=== PATIENT | female | born 2000 | race African-American/Black ===

== ENCOUNTER 2022-07-11 00:41 | Emergency (ER) | payer MEDICAID ==
[~2022-07-11] VITALS: Ht 160 cm; Wt 63.7 kg
[~2022-07-11 00:41] MED LIST: ALBU17AE23
[2022-07-11 00:50] VITALS: BP 110/62
--- NOTE | 2022-07-11 01:09 | ED Abdominal Pain ---
General Stated Complaint: VOMITING 8 WKS PREG Source of Information: Patient Exam Limitations: No Limitations History of Present Illness Date Seen by Provider: Jul 11, 2022 Time Seen by Provider: 01:08 Initial Comments Patient is a 22-year-old female who presents to the emergency department today with a chief complaint of generalized malaise, weakness dizziness with standing, nausea and vomiting all day while working. She is approximately 6 weeks , G1, P0 no care yet. Did not take anything other than a vitamin today. Attempted to eat some noodles at dinner but vomited them back up she denies abdominal pain but has lower abdominal "fullness". Denies dysuria, urgency frequency. No abnormal vaginal discharge or spotting. No fevers or chills. No cough, URI symptoms. States that she feels very dehydrated. Only prior surgeries ACL repair. Anticipates care through [facility]. Timing/Duration: 12-24 Hours Severity/Quality: Severe Activities at Onset: Activity Modifying Factors: Improves With Lying down Associated Symptoms: Nausea/Vomiting, Weakness Allergies and Home Medications Allergies Coded Allergies: No Known Drug Allergies (Unverified Allergy, Mild, 01/09/09) Patient Home Medication List Home Medication List Reviewed: Yes Albuterol (Ventolin) 17 Gm Aerosol, (Reported) Entered as Reported by: ADAL ORONA on 01/09/092208 Review of Systems Review of Systems Constitutional: see HPI EENTM: No Symptoms Reported Respiratory: No Symptoms Reported Cardiovascular: No Symptoms Reported Gastrointestinal: Constipated, Nausea, Vomiting Genitourinary: No Symptoms Reported Musculoskeletal: no symptoms reported Skin: no symptoms reported Psychiatric/Neurological: Weakness, Other (dizziness) All Other Systems Reviewed Negative Unless Noted: Yes Physical Exam Vital Signs Vital Signs - First Documented 07/11/22 00:50 Temp 36.6 Pulse 82 Resp 20 B/P (MAP) 110/62 (78) Capillary Refill : Height/Weight/BMI Height: '" Weight: lbs. oz. kg; BMI Method: General Appearance: WD/WN, no apparent distress HEENT: PERRL/EOMI, other (dry mucous membranes) Neck: supple, normal inspection Respiratory: lungs clear, normal breath sounds, no respiratory distress, no accessory muscle use Cardiovascular: regular rate, rhythm Gastrointestinal: normal bowel sounds (slightly hyperactive), soft, tenderness (mild jarret-umbilical tenderness) Extremities: normal range of motion, normal inspection, no pedal edema Neurologic/Psychiatric: no motor/sensory deficits, alert, normal mood/affect, oriented x 3 Skin: normal color, warm/dry Progress/Results/Core Measures Results/Orders Lab Results Laboratory Tests Test 07/11/22 01:25 07/11/22 01:45 Range/Units Sodium Level 135 135-145 MMOL/L Potassium Level 3.2 L 3.6-5.0 MMOL/L Chloride Level 103 98-107 MMOL/L Carbon Dioxide Level 22 21-32 MMOL/L Anion Gap 10 5-14 MMOL/L Blood Urea Nitrogen 9 7-18 MG/DL Creatinine 0.74 0.60-1.30 MG/DL Estimat Glomerular Filtration Rate 117 BUN/Creatinine Ratio 12 Glucose Level 105 70-105 MG/DL Calcium Level 9.7 8.5-10.1 MG/DL Urine Color YELLOW Urine Clarity CLEAR Urine pH 7.0 5-9 Urine Specific Haven 1.025 H 1.016-1.022 Urine Protein NEGATIVE NEGATIVE Urine Glucose (UA) NEGATIVE NEGATIVE Urine Ketones 1+ H NEGATIVE Urine Nitrite NEGATIVE NEGATIVE Urine Bilirubin NEGATIVE NEGATIVE Urine Urobilinogen 0.2 < = 1.0 MG/DL Urine Leukocyte Esterase NEGATIVE NEGATIVE Urine RBC (Auto) NEGATIVE NEGATIVE Urine RBC NONE /HPF Urine WBC NONE /HPF Urine Squamous Epithelial Cells 0-2 /HPF Urine Crystals NONE /LPF Urine Bacteria TRACE /HPF Urine Casts NONE /LPF Urine Mucus LARGE H /LPF Urine Culture Indicated NO My Orders Orders - ONUR CHACKO MD Ed Iv/Invasive Line Start (07/11/22 01:15) Basic Metabolic Panel (07/11/22 01:15) Ua Culture If Indicated (07/11/22 01:15) Lactated Ringers (Lr 1000 Ml Iv Solution (07/11/22 01:15) Ondansetron Injection (Zofran Injectio (07/11/22 01:15) Medications Given in ED Current Medications Medications Dose Ordered Sig/Christel Route Start Time Stop Time Status Last Admin Dose Admin Ondansetron HCl 8 mg ONCE ONCE IVP 07/11/22 01:15 07/11/22 01:16 DC 07/11/22 01:26 8 MG Vital Signs/I&O 07/11/22 00:50 Temp 36.6 Pulse 82 Resp 20 B/P (MAP) 110/62 (78) Progress Progress Note : Time: 02:32 Progress Note Patient seen and evaluated by me, 22-year-old G1, P0 presents to the emergency room with 24 hours of nausea and vomiting. Differential diagnosis based on history and physical includes hyperemesis gravidarum, urinary tract infection, viral syndrome, gastroenteritis, appendicitis, cholecystitis. Evaluation today includes physical exam, urinalysis, basic metabolic panel. Patient is treated with IV fluids and Zofran. Patient is afebrile, no persistent vomiting. Abdominal exam is benign. UA does not reveal any infection. Basic metabolic panel shows mild hypokalemia. Once fluids and Zofran have been completed patient is hungry and requesting crackers and something to drink. She states she feels much better. Reexamined, remains with benign exam. Low clinical suspicion for any acute intra-abdominal process. Patient will be sent home with Zofran and return precautions. She verbalized understanding. All questions are sought and answered. Patient is stable for discharge. Departure Impression Primary Impression: Vomiting affecting , antepartum Disposition: 01 HOME, SELF-CARE Condition: Improved Departure-Patient Inst. Decision time for Depature: 02:35 Referrals: [facility] (PCP/Family) Primary Care Physician Patient Instructions: Morning Sickness ED Add. Discharge Instructions: Take the ondansetron/Zofran, 1 every 8 hours as needed for nausea. You should take daily stool softeners as you have been constipated recently and Zofran can actually increase constipation symptoms. Try and drink plenty of fluids to stay well-hydrated. If you develop abdominal pain with nausea and vomiting especially with fever, vaginal bleeding or spotting please come back to the emergency room for reevaluation. Scripts Ondansetron (Ondansetron Odt) 4 Mg Tab.rapdis 4 MG SL Q8H PRN for NAUSEA/VOMITING, #10 TAB Prov: ONUR CHACKO MD 07/11/22 Work/School Note: Work Release Form Date Seen in the Emergency Department: Jul 11, 2022 Return to Work: Jul 12, 2022 Copy Copies To 1: FIDELIA ROMO KATHRYN M MD Jul 11, 2022 01:09
[2022-07-11] MEDS ORDERED: LACTATED RINGERS 1,000 ML IV SCH (01:15)
[2022-07-11] MEDS ORDERED: ONDANSETRON 4 MG/2 ML (SDV) Z0FRAN IVP ONE (01:15)
[2022-07-11 01:47] LABS: POTASSIUM 3.2 MMOL/L (3.6-5.0)
[2022-07-11 01:48] LABS: CALCIUM 9.7 MG/DL (8.5-10.1)
[2022-07-11 01:52] LABS: CREATININE SERUM 0.74 MG/DL (0.60-1.30)
[2022-07-11 01:53] LABS: BILIRUBIN,URINE NEGATIVE (NEGATIVE); CLARITY,URINE CLEAR; COLOR,URINE YELLOW; GLUCOSE, URINE (UA) NEGATIVE (NEGATIVE); KETONES,URINE 1+ (NEGATIVE); LEUKOCYTE ESTERASE ,URINE NEGATIVE (NEGATIVE); NITRITE,URINE NEGATIVE (NEGATIVE); PROTEIN,URINE NEGATIVE (NEGATIVE)
[2022-07-11 02:06] LABS: BACTERIA,URINE TRACE /HPF; SQUAMOUS EPITHELIAL CELL,UR 0-2 /HPF
[2022-07-11] MEDS ORDERED: ONDA4TAB11 SL (02:36)
== END 2022-07-11 02:40 | disposition home or self-care (01) ==
LOC: EDUNIT# 00:41 → ER 00:45
DX: O21.9 Vomiting of pregnancy, unspecified (principal); O99.281 Endocrine, nutritional and metabolic diseases complicating pregnancy, first trimester; E87.6 Hypokalemia; Z28.310 Unvaccinated for COVID-19; Z3A.08 8 weeks gestation of pregnancy
CPT/HCPCS: 36415; 80048; 81000; 84703; 99282

== ENCOUNTER 2023-01-09 16:12 | Outpatient (CLI) | payer MEDICAID ==
[~2023-01-09] VITALS: Ht 160 cm; Wt 70.9 kg
[~2023-01-09 16:12] MED LIST changes: +ONDA4TAB11 SL
[2023-01-09 16:27] VITALS: BP 105/54
[2023-01-09 16:30] VITALS: BP 105/54
[2023-01-09 16:30] LABS: BILIRUBIN,URINE NEGATIVE (NEGATIVE); CLARITY,URINE SL CLOUDY; COLOR,URINE YELLOW; GLUCOSE, URINE (UA) NEGATIVE (NEGATIVE); KETONES,URINE NEGATIVE (NEGATIVE); LEUKOCYTE ESTERASE ,URINE NEGATIVE (NEGATIVE); NITRITE,URINE NEGATIVE (NEGATIVE); PROTEIN,URINE TRACE (NEGATIVE)
[2023-01-09 16:41] LABS: BACTERIA,URINE MODERATE /HPF
[2023-01-09 17:35] VITALS: BP 105/54
--- NOTE | 2023-01-10 09:17 | Physician Query-Final Dx ---
Clinic Account Progress/Dx Physician Query: Please give diagnosis Please include # weeks gestation Date of Service Jan 09, 2023 at 16:12 WHEAT,JunJan 10, 2023 09:17
== END 2023-01-09 17:35 | disposition home or self-care (01) ==
LOC: WSo 16:12 → LDRP 16:13 → WSo 17:35
PROVIDERS: ATTEND Family Medicine
DX: O62.9 Abnormality of forces of labor, unspecified (principal); Z3A.32 32 weeks gestation of pregnancy
CPT/HCPCS: 81000; 87088; 99213

== ENCOUNTER 2023-01-20 18:30 | Outpatient (CLI) | payer MEDICAID ==
[~2023-01-20] VITALS: Ht 160 cm; Wt 73.5 kg
[2023-01-20 18:42] VITALS: BP 102/59
--- NOTE | 2023-01-21 09:44 | Physician Query-Final Dx ---
Clinic Account Progress/Dx Physician Query: Please give diagnosis Please include # weeks gestation Date of Service Jan 20, 2023 at 18:30 ALICIA,JunJan 21, 2023 09:44
== END 2023-01-20 19:23 ==
LOC: LDRP 18:30 → WSo 18:30
PROVIDERS: ATTEND Family Medicine
DX: O9A.219 Injury, poisoning and certain other consequences of external causes complicating pregnancy, unspecified trimester (principal); W19.XXXA Unspecified fall, initial encounter; Z3A.00 Weeks of gestation of pregnancy not specified
CPT/HCPCS: 99212

== ENCOUNTER 2023-03-01 19:41 | Inpatient (IN) | payer MEDICAID ==
[~2023-03-01] VITALS: Ht 157.5 cm; Wt 75.4 kg
--- OUTSIDE RECORDS SUMMARY | 2023-03-01 19:44 | XMS REPORT | Referral Summary ---
Author Author [facility] Organization [facility] Address Unknown Phone Unavailable Care Team Providers Care Bed Machine Operator Name Role Phone NONE, PCP PCP Unavailable Encounter Clinic Date(s): 11/12/19 - 11/12/19 [place] [id number] [address] [address]- Encounter Diagnosis S/P ACL reconstruction(Discharge Diagnosis) - 11/12/19 Discharge Disposition: 01 [facility] Home Problem List Condition Effective Dates Status Health Status Inform ant Acute tear of medial meniscu s of right knee(Confirmed) Active Overweight(Confirmed) Active Surgical follow-up(Confirmed) Active Tear of anterior cruciate li gament of right knee(Confirmed) Active Allergies, Adverse Reactions, Alerts No Known Allergies Medications aspirin 325 mg oral tablet 325 mg = 1 tab, PO, qDay, take with food, DVT ppx, # 42 tab, 0 Refill(s), Pharmacy: [facility] #[id number], 157, cm, 10/23/19 9:38:00 CDT, Height, 66.1, kg, 10/14/19 21:51:00 CDT, Weight Start Date: 11/08/19 Status: Ordered Mobic 15 mg oral tablet 15 mg = 1 tab, PO, qDay, with food; stop other NSAIDs while taking this medication, # 30 tab, 1 Refill(s), Pharmacy: [facility] #[id number], 157, cm, 10/23/19 9:38:00 CDT, Height, 66.1, kg, 10/14/19 21:51:00 CDT, Weight Start Date: 11/08/19 Status: Ordered traMADol 50 mg oral tablet 50 mg = 1 tab, PO, q4hr, for pain, # 12 tab, 145.73 Start Date: 10/23/19 Status: Ordered Zofran 4 mg oral tablet 4 mg = 1 tab, PO, q6hr, 1-2 tab, # 20 tab, 1 Refill(s), Pharmacy: [facility] #[id number], 157,cm, 10/23/19 9:38:00 CDT, Height, 66.1, kg, 10/14/19 21:51:00 CDT, Weight Start Date: 11/08/19 Status: Ordered Procedures Procedure Date Related Diagnosis Body Site Status Extraction of wisdom tooth Completed Social History Social History Type Response Smoking Status Never smoker entered on: 10/14/19
--- OUTSIDE RECORDS SUMMARY | 2023-03-01 19:44 | XMS REPORT | Encounter Summary ---
Author Author [facility] Organization [facility] Address Unknown Phone Unavailable Care Team Providers Care Skip Operator Name Role Phone None, Pcp MD PCP Unavailable Source Comments In the event that these patient records contain information protected by federal confidentiality rules ( 42 CFR Part 2), the Federal rules prohibit you from making any further disclosure of this information unless further disclosure is expressly permitted by the written consent of the person to whom it pertains or as otherwise permitted by 42 CFR Part 2. A general authorization for the release of medical or other information is NOT sufficicient for this purpose. The Federal rules restrict anyuse of the information to criminally investigate or prosecute any alcohol or drug abuse patient.[facility] Reason for Visit * Reason Comments Animal Bite Encounter Details Date Type Department Care Team Description 12/18/2016 - 12/19/2016 Emergency [facility] [place] - Emergency Department - [facility] [address] [phone] Social History Tobacco Use Types Packs/Day Years Used Date Smoking Tobacco: Never Alcohol Use Standard Drinks/Week Comments No 0 (1 standard drink = 0.6 oz pur e alcohol) Sex Assigned at Date Recorded Not on file documented as of this encounter Last Filed Vital Signs Vital Sign Reading Time Taken Comments Blood Pressure 108/76 12/19/2016 1:32 AM CDT Pulse 60 12/19/2016 1:32 AM CDT Temperature 37 C (98.6 F) 12/19/2016 1:32 AM CDT Respiratory Rate 17 12/19/2016 1:32 AM CDT Oxygen Saturation 99% 12/19/2016 1:32 AM CDT Inhaled Oxygen Concentration - - Weight 65.8 kg (145 lb) 12/18/2016 10:21 PM CDT Height 158.8 cm (5' 2.5") 12/18/2016 10:21 PM CD T Body Mass Index 26.1 12/18/2016 10:21 PM CDT Body Mass Index Percentile 86.93 % 12/18/2016 10: 21 PM CDT Growth Chart: CDC (Girls, 2- 20 Years) documented in this encounter Discharge Instructions * Attachments The following attachments cannot be sent through Care Everywhere. * VIS, RABIES - [facility] ([facility]E[facility]) * ANIMAL BITE (BR[place]EIAN) documented in this encounter Medications at Time of Discharge Medication Sig Dispensed Refills Start Date End Date amoxicillin - clavulanate, 875-125 mg/tab, (AUGMENTIN) 875-125 mg tablet Take 1 tablet by mouth every 12 hours for 3 days 6 tablet 0 12/19/2016 12/22/2016 documented as of this encounter ED Notes * Nicole Pruett RN - 12/19/2016 12:23 AM CDT TPD at bedside * Nicole Pruett RN - 12/19/2016 12:00 AM CDT TPD notified of animal bite * Bethany Gillespie PA-C - 12/18/2016 11:38 PM CDT Patient: Joan Pelayo : 2000 PCP: Kemar Corral Pcp Date: 12/19/2016 CHIEF COMPLAINT Chief Complaint Patient presents with Animal Bite HPI Joan Pelayo is a 16yr female who presents with concerns about stray animal bite/scratch which occurred just prior to presentation. Pt was walking up her porch stairs when an animal attacked her from behind. Pt saw the back of the animal and believes it was a raccoon. This was an unprovoked attack. She denies Td within 5 years. Pain is minimal. Has not had anything for sx relief. REVIEW OF SYSTEMS Review of Systems Constitutional: Negative for fever and chills. Eyes: Negative for discharge and redness. Respiratory: Negative for cough and shortness of breath. Cardiovascular: Negative for chest pain. Gastrointestinal: Negative for nausea, vomiting, abdominal pain and diarrhea. Musculoskeletal: Negative for back pain and neck pain. Skin: Negative for itching and rash. Neurological: Negative for dizziness and headaches. Psychiatric/Behavioral: Negative for depression and suicidal ideas. The patient is not nervous/anxious. See HPI for further details. Review of systems otherwise negative. PAST MEDICAL HISTORY No past medical history on file. FAMILY HISTORY No family history on file. SOCIAL HISTORY Social History Social History Marital Status: Single Spouse Name: N/A Number of Children: N/A Years of Education: N/A Social History Main Topics Smoking status: Never Smoker Smokeless tobacco: None Alcohol Use: No Drug Use: No Sexual Activity: Not Asked Other Topics Concern None Social History Narrative None SURGICAL HISTORY No past surgical history on file. CURRENT MEDICATIONS Prior to Admission medications Medication Sig amoxicillin - clavulanate, 875-125 mg/tab, (AUGMENTIN) 875-125 mg tablet Take 1 tablet by mouth every 12 hours for 3 days ALLERGIES No Known Allergies PHYSICAL EXAM INITIAL VITAL SIGNS: Triage Vitals Date and Time BP Pulse Temp Resp SpO2 L/min O2 Delivery Recorded by 12/18/16 2221 113/75 mmHg 78 98.5 F (36.9 C) 16 98 % -- RA-room air BC Constitutional : Well developed, Well nourished, No acute distress,does not appear ill or uncomfortable. Non-toxic appearance. HENT: Normocephalic, Atraumatic, Bilateral external ears normal, Bilateral TM's are clear. Oropharynx moist, Tongue normal, no lesions. No pharyngeal edema, exudates or redness, Uvula rises midline, Nose without turbinate edema, erythema. Sinus non tender Eyes: PERRL, EOMI, Conjunctiva normal, no scleral icterus, No discharge. Neck: Normal range of motion, No tenderness, Supple, No adenopathy. Cardiovascular: Normal heart rate, Normal rhythm, No murmurs. No thrill, rub. Thorax & Lungs: Normal breath sounds, No respiratory distress, No wheezing, no crackles, rub. No chest tenderness. Skin: Warm, Dry, No erythema, No rash noted. Back: No tenderness. No CVA tenderness. Normal range of motion. Musculoskeletal: Good range of motion in all major joints. RT LE: Lateral leg with 2 superficial scrap abrasions and 4 additional small punctures noted. No active bleeding. No deep lacerations. Minimal tenderness on palpation. Neurologic: Alert & oriented x 3, Normal motor function, Normal sensory function, No focal deficits noted. CN 2-12 grossly intact Psychiatric: Affect normal, Judgment normal, Mood normal. EKG ECG Results None RADIOLOGY No results found. PROCEDURES Sites cleansed with hibiclens. Rabies immunoglobulin injected surrounding 2 separate puncture wounds. Dressed with triple abx and dressing. LABS No results found for this visit on 12/18/16. ED COURSE & MEDICAL DECISION MAKING Pertinent Laboratory & Imaging studies reviewed Pt in no acute distress or obvious discomfort. VSS. Pt has scratches and small punctures noted. None which require repair. As this was an unprovoked attack by a stray animal, pt will require rabies prophalaxis. Rabies vaccine and immunoglobulin given. Boostrix given. TPD notified regarding animal bite. Discussed findings, treatment and followup with the patient and her mother. Vitals BP Pulse Temp(Src) Resp Ht Wt 113/75 mmHg 78 98.5 F (36.9 C) 16 5' 2.5" 65.772 kg (145 lb) SpO2 98% Discharge Vitals Flags Systolic BP Diastolic BP Pulse Respirations O2 Sat <95 or >140 <60 or >90 <60 or >100 <12 or >20 <92% If the patients discharge blood pressure is greater than 120 systolic OR 80 diastolic, there MUST be a diagnosis of Pre-Hypertension or Hypertension (already on medication) and clearly refer them for follow-up for their blood pressure. CLINICAL IMPRESSION 1. Raccoon bite, initial encounter PLAN Prescription Provided - Keflex Follow up with [facility] for re-check and continued care. Return with acute concerns. Special Instructions - Keep sites clean with soap and water. Reviewed s/s of infection. F/U with concerns. Tylenol or ibuprofen if needed for pain control. Rabies vaccination info and schedule form provided. Electronically signed by: Bethany Morley PA-C 12/19/2016 2:00 AM This chart was dictated in whole or in part using Voice Recognition software in a busy, high-work load, and often noisy Emergency Department environment; it may contain unintended and wholly unrecognized errors or omissions. documented in this encounter Plan of Treatment Not on file documented as of this encounter Visit Diagnoses Diagnosis Raccoon bite, initial encounter- Primary documented in this encounter Administered Medications Inactive Administered Medications - up to 3 most recent administrations Medication Order MAR Action Action Date Dose Rate Site diptheria- acellular pertussis-tetanus toxoid vaccine (BOOSTRIX) (2.5-8-5) PF injection 0.5 mL 0.5 mL, Intramuscular, ONE TIME NEEDED, 1 dose, Starting on 12/18/16 at 2353, Until 12/19/16 at 0105, Give prior to discharge, Refrigerate - do not freeze. D-listed Hazardous Waste. Dispose of in proper container. Given 12/19/2016 1:05 AM CDT 0.5 mL Gluteus, Left Upper Quad lidocaine 1% (L-ERAN) (conc: 10mg/mL) injection 10 mL 10 mL, Intradermal, ONE TIME, 1 dose, On 12/19/16 at 0015 Given by Other 12/19/2016 1:01 AM CDT 10 mL Leg, Right Lower rwgziwhm-vkoolgxpsk-yd lymyxin (TRIPLE ANTIBIOTIC) ointment packet 1 Packet Topical, ONE TIME, 1 dose, On 12/19/16 at 0015 Given 12/19/2016 1:01 AM CDT 1 Packet rabies immune globulin PF (IMOGAM RABIES) injection 1,315.5 Units 1,315.5 Units (rounded from 1,316 Units = 20 Units/kg 65.8 kg), Intramuscular, ONE TIME, 1 dose, On 12/19/16 at 0015, * If anatomically feasible, the full dose should be infiltrated around wound(s), the rest should be administered IM in the deltoid or lateral thigh area. * HRIG should NOT be administered in same syringe or in the same anatomical site as the vaccine * HRIG should NOT be administered more than 7 days after initiation of vaccine * Refrigerate - do not freeze. Given by Other 12/19/2016 1:03 AM CDT 1,315.5 Units Leg, Right Lower rabies virus vaccine PF (PCEC) (RABAVERT) injection 1 mL 1 mL, Intramuscular, ONE TIME, 1 dose, On 12/19/16 at 0015, Vaccine should only be administered in the deltoid for adults and anterolateral zone of the thigh for small children and infants NEVER in the GLUTEOUS Refrigerate - do not freeze. Given 12/19/2016 1:01 AM CDT 1 mL Leg, Left Upper documented in this encounter Active and Recently Administered Medications Times are shown in CDT. Scheduled Medication Order 12/17/2016 12/18/2016 12/19/2016 lidocaine 1% (L-ERAN) (conc: 10mg/mL) injection 10 mL (COMPLETED) 10 mL, Intradermal, ONE TIME, 1 dose, 12/19/16 at 0015 0101 (Given by Other - Provider: Nicole Pruett RN) sbkvdnxa-zgdskjsgnb-xyiookxng (TRIPLE ANTIBIOTIC) ointment packet 1 Packet (COMPLETED) Topical, ONE TIME, 1 dose, 12/19/16 at 0015 0101 (Given - Provid er: Nicole Pruett RN) rabies immune globulin PF (IMOGAM RABIES) injection 1,315.5 Units (COMPLETED) 1,315.5 Units (rounded from 1,316 Units = 20 Units/kg 65.8 kg), Intramuscular, ONE TIME, 1 dose, 12/19/16 at 0015, * If anatomically feasible, the full dose should be infiltrated around wound(s), the rest should be administered IM in the deltoid or lateral thigh area. * HRIG should NOT be administered in same syringe or in the same anatomical site as the vaccine * HRIG should NOT be administered more than 7 days after initiation of vaccine * Refrigerate - do not freeze. 0103 (Given by Other - Provider: Nicole Pruett RN) rabies virus vaccine PF (PCEC) (RABAVERT) injection 1 mL (COMPLETED) 1 mL, Intramuscular, ONE TIME, 1 dose, 12/19/16 at 0015, Vaccine should only be administered in the deltoid for adults and anterolateral zone of the thigh for small children and infants NEVER in the GLUTEOUS Refrigerate - do not freeze. 0101 (Given - Provid er: Nicole Pruett RN) PRN Medication Order 12/17/2016 12/18/2016 12/19/2016 diptheria- acellular pertussis-tetanus toxoid vaccine (BOOSTRIX) (2.5-8-5) PF injection 0.5 mL (COMPLETED) 0.5 mL, Intramuscular, ONE TIME NEEDED, 1 dose, Starting 12/18/16 at 2353, Until 12/19/16 at 0105, Give prior to discharge, Refrigerate - do not freeze. D-listed Hazardous Waste. Dispose of in proper container. 0105 (Given - Provid er: Nicole Pruett RN) documented in this encounter Care Teams Skip Operator Relationship Specialty Start Date End Date None, Pcp, MD PCP - General Other or Unknown Specialty 12/19/16 documented as of this encounter
--- OUTSIDE RECORDS SUMMARY | 2023-03-01 19:44 | XMS REPORT | Referral Summary ---
Author Author [facility] Organization [facility] Address Unknown Phone Unavailable Encounter Clinic Date(s): 10/23/19 [facility] [address] [place] [id number]- Encounter Diagnosis Tear of anterior cruciate ligament of right knee(Discharge Diagnosis) - 10/23/19 Acute tear of medial meniscus of right knee(Discharge Diagnosis) - 10/23/19 Discharge Disposition: [facility] Home Attending Physician: Johnnie Jordan MD Referring Physician: Luz Saez DO Vital Signs Most recent to oldest [Reference Range]: 1 Height FT 5.15 ft (10/23/19 9:38 AM) Height 157 cm (10/23/19 9:38 AM) Weight LBS 145.73 lb (10/23/19 9:38 AM) Weight, Measured 66.1 kg (10/23/19 9:38 AM) Blood Pressure Display 124 / 75 (10/23/19 9:49 AM) BMI 26.82 (10/23/19 9:49 AM) Peripheral Pulse Rate [60-100 bpm] 84 bp m (10/23/19 9:38 AM) Temperature Temporal Artery [36.3-37.8 D egC] 36.7 DegC (10/23/19 9:38 AM) Problem List Condition Effective Dates Status Health Status Inform ant Acute tear of medial meniscu s of right knee(Confirmed) Active Overweight(Confirmed) Active Tear of anterior cruciate li gament of right knee(Confirmed) Active Allergies, Adverse Reactions, Alerts No Known Allergies Medications traMADol 50 mg oral tablet 50 mg = 1 tab, PO, q4hr, for pain, # 12 tab, 145.73 Start Date: 10/23/19 Status: Ordered Procedures Procedure Date Related Diagnosis Body Site Status Extraction of wisdom tooth Completed Social History Social History Type Response Smoking Status Never smoker entered on: 10/14/19 Assessment and Plan Extracted from: Title:Ortho Office Visit Note Author:Yuan Jordan MD Date:10/23/19 1.Tear of anterior cruciat e ligament of right knee 2.Acute tear of medial meniscus of right knee Today we discussed the nature of her injury, as well as treatment options. We discussed the nature of the anterior cruciate ligament and meniscus tears. 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 We discussed operative and nonoperative management at length. We also discussed rehabilitation and use of a brace. Postoperative rehabilitation and graft options were also discussed. Risks benefits and alternatives were discussed today. Risks discussed include but are not limited to: Infection, bleeding, nerve damage, postoperative swelling, postoperative arthrofibrosis, risk of re tear, possible need for articular cartilage hinduism techniques, postoperative DVT and general anesthetic complications. At this point she has made a decision toward surgical intervention. Proposed procedure is a right kneearthroscopy with ACL reconstruction utilizing hamstring autograft,partial medial meniscectomy versus repair. She is contemplating delaying the surgeryuntil this fall. We discussed the nature of the medial meniscus, and success rates with meniscus repairfor an acute tear versus a chronic tear. She has no personalhistory of DVT, and therefore we discussed the standard use of a daily aspirin postoperatively for DVT prophylaxis. If she does desire to delay her surgery until the fall, I would advocate that she at least get some physical therapy, and to present back to clinic so that we can transition her out of the knee immobilizer and into a low-profile hinged knee brace. At this point we will plan on seeing her back in follow-up after surgery, however if she delays surgery we will see shivajoseph clinicallyin the next month for a recheck on range of motion. (Please note this documentation was completed utilizing voice recognition software. Please excuse any inadvertent typographical errors.) A total of 45 minutes were spent managing the patient's care. Of that time,greater than 50% was spent counseling/coordinating care, as discussed above. Goals No goals documented Follow-Up Information With: Johnnie Jordan MDComments: after surgery
--- OUTSIDE RECORDS SUMMARY | 2023-03-01 19:44 | XMS REPORT | Referral Summary ---
Author Author [facility] Organization [facility] Address Unknown Phone Unavailable Care Team Providers Care Speech Therapist Technician Name Role Phone NONE, PCP PCP Unavailable Encounter Clinic Date(s): 12/11/19 - 12/11/19 [place] [id number] [phone]- Encounter Diagnosis Acute tear of medial meniscus of right knee(Discharge Diagnosis) - 12/11/19 Surgical follow-up(Discharge Diagnosis) - 12/11/19 Tear of anterior cruciate ligament of right knee(Discharge Diagnosis) - 12/11/19 Discharge Disposition: [facility] Home Attending Physician: Alie Issa Referring Physician: Johnnie Jordan MD Vital Signs Most recent to oldest [Reference Range]: 1 Height FT 5.15 ft (12/11/19 1:54 PM) Height 157 cm (12/11/19 1:54 PM) Weight LBS 145.73 lb (12/11/19 1:54 PM) Weight, Measured [0-500 kg] 66.1 kg (12/11/19 1:54 PM) Blood Pressure Display 102 / 68 (12/11/19 2:01 PM) BMI 26.82 (12/11/19 2:01 PM) Peripheral Pulse Rate [60-100 bpm] 70 bp m (12/11/19 1:54 PM) Temperature Temporal Artery [36.3-37.8 D egC] 36.9 DegC (12/11/19 1:54 PM) Problem List Condition Effective Dates Status Health [...] ppx, # 42 tab, 0 Refill(s), Pharmacy: [facility] #[id number], 157, cm, 10/23/19 9:38:00 CDT, Height, 66.1, kg, 10/14/19 21:51:00 CDT, Weight Start Date: 11/08/19 Status: Ordered Mobic 15 mg oral tablet 15 mg = 1 tab, PO, qDay, with food; stop other NSAIDs while taking this medication, # 30 tab, 1 Refill(s), Pharmacy: [facility] #[id number], 157, cm, 10/23/19 9:38:00 CDT, Height, 66.1, kg, 10/14/19 21:51:00 CDT, Weight Start Date: 11/08/19 Status: Ordered Zofran 4 mg oral tablet 4 mg = 1 tab, PO, q6hr, 1-2 tab, # 20 tab, 1 Refill(s), Pharmacy: [facility] #[id number], 157,cm, 10/23/19 9:38:00 CDT, Height, 66.1, kg, 10/14/19 21:51:00 CDT, Weight Start Date: 11/08/19 Status: Ordered Procedures Procedure Date Related Diagnosis Body Site Status RT KA c ACL-R w/ autograft, MMrepair, CSS:100 11/09/19 Completed Extraction of wisdom tooth Completed Social History Social History Type Response Smoking Status Never smoker entered on: 10/14/19 Assessment and Plan Extracted from: Title:Ortho Office Visit Note Author:Jenniffer Issa Date:12/11/19 1.Acute tear of medial men iscus of right knee 2.Surgical follow-up 3.Tear of anterior cruciate ligament of right knee We reviewed her progress and discussed continued treatment. At this time, we would recommend continuation of formal physical therapy. She can continue to work on range of motion as tolerated. We discussed achieving full range of motion in the next 2 to 3 weeks. We will plan on seeing her back for follow-up in approximately 1 month for repeat clinical evaluation. She was encouraged to take a daily aspirin for DVT prophylaxis for the next 2 weeks. Signs and symptoms of DVT were discussed in detail with the patient. We discussed she can return to workon Tuesday with the avoidance of any pivoting, twistingas well as heavy lifting. All of her questions were answered and she is amenable to contacting the office with any questions or concerns prior to her follow-up. Prosper Disclaimer: This note was dictated in part using Voice Recognition. It may contain unintended or unrecognizable text which was not found during editing. Goals No goals documented Follow-Up Information [facility] weeks Comments: with Dr. Jordan or Alie Issa PAC
--- OUTSIDE RECORDS SUMMARY | 2023-03-01 19:44 | XMS REPORT | Referral Summary ---
Author Author [facility] Organization [facility] Address Unknown Phone Unavailable Encounter Clinic Date(s): 10/16/19 - 10/16/[facility] [address] [place] [address] [place] [phone]- Encounter Diagnosis Pain in right knee(Discharge Diagnosis) - 10/16/19 Discharge Disposition: 01 [facility] Home Attending Physician: Luz Saez DO Referring Physician: Luz Saez DO Vital Signs Most recent to oldest [Reference Range]: 1 Height FT 5.15 ft (10/16/19 1:42 PM) Height 157 cm (10/16/19 1:42 PM) Weight LBS 145.73 lb (10/16/19 1:42 PM) Weight, Measured 66.1 kg (10/16/19 1:42 PM) Blood Pressure Display 113 / 73 (10/16/19 1:51 PM) BMI 26.82 (10/16/19 1:51 PM) Peripheral Pulse Rate [60-100 bpm] 109 b pm *HI* (10/16/19 1:42 PM) Problem List Condition Effective Dates Status Health Status Inform ant Overweight(Confirmed) Active Allergies, Adverse Reactions, Alerts No Known Allergies Medications No Known Medications Social History Social History Type Response Smoking Status Never smoker entered on: 10/14/19 Assessment and Plan Extracted from: Title:Ortho Office Visit Note Author:Luz Saez DO Date:10/16/19 Impression: -Right knee pain and injury with concern for ACL tear Plan; -Reviewed history and exam with patient. Discussed that given mechanism of injury, effusion and laxity noted with exam, concern for ACL tear. Recommended proceeding with MRI of right knee for further evaluation and patient wishes to proceed. Recommended continued use of knee immobilizer as needed with walking. Discusseddiscontinuing 24 hour use andcoming out of knee immobilizer at home when at rest to work on gentle ROM. Recommended continued use of crutches as needed for weight bearing. Reviewed use Discussed use of NSAIDs to help with pain and swelling. Recommended icing to help with pain and swelling. ATC provided and reviewed exercises for knee ROM, quad sets, and straight leg raises. Follow up after MRI Follow-Up Information With: Luz Saez DO
--- OUTSIDE RECORDS SUMMARY | 2023-03-01 19:44 | XMS REPORT | Clinical Summary ---
Author Author [facility] Organization [facility] Address Unknown Phone Unavailable Care Team Providers Care Nut Packer Name Role Phone Hailey Naqvi MD Unavailable Nallely Cornejo MD PCP [phone] Allergies No known active allergies Medications Medication Sig Dispensed Refills Start Date End Date Status cetirizine (ZYRTEC) 10 MG tabletIndications:Chr onic Urticaria Take 1 tablet (10 mg total) by mouth daily. Indications: Chronic Hives 90 tablet 3 10/20/2017 Active fluticasone (FLONASE) 50 MCG/ACT nasal sprayIndications:Gerardo rgic Rhinitis Place 1 spray into each nostril daily. Indications: Allergic Rhinitis 16 g 0 10/20/2017 Active albuterol (PROAIR, PROVENTIL, VENTOLIN) 108 (90 Base) MCG/ACT inhalerIndications:Mi ld intermittent asthma without complication Inhale 2 puffs into the lungs every 6 (six) hours as needed for Wheezing. 1 g 0 10/20/2017 Active Active Problems Problem Noted Date Diagnosed Date Urticaria 10/20/2017 Last Assessment & Plan: Would recommend using an antihistamine for at least a month to see if it helps. Exercise induced bronchospasm 04/21/2015 Mild intermittent asthma without complication Last Assessment & Plan: Continue albuterol as needed. Immunizations Name Administration Dates Next Due DTP (WebIZ registry) 1999,1999,04/23 DTaP 02/12/2005 DTaP/HiB 06/08/2000 HPV, quadrivalent (Gardasil) 01/26/2012 Hep B,adolescent or pediatric 06/08/2000, 000,1999 INFLUENZA IIV4 PF (FLULAVAL,FLUZONE,FLUARIX,AFLURIA QUAD) 04/21/2015 IPV 02/12/2005,1999 Influenza IIV3 MDV (Multi-dose vial) 03/14/2017, 07/19/2012 Influenza IIV3 PFree 02/25/2016 MMR 02/12/2005,06/08/2000 Meningococcal Polysaccharide valent-4 Diphtheria Toxoid Conjucate (Menactra) 01/26/2012 OPV (WebIZ registry) 1999,1999 Pneumococcal Conjugate (7-va lent) -WebIZ Registry 06/19/2001 Pneumococcal Polysaccharide (23-valent) 08/13/19 Rabies Immune Globulin 12/19/2016 Rabies vaccine IM 12/27/2016,12/22/2016 Tdap 12/19/2016,01/26/2012 Varicella (Varivax) 01/26/2012,08/12/2000 Family History Medical History Relation Comments No Known Problems Brother No Known Problems Father No Known Problems Maternal Grandfather Diabetes Maternal Grandmother Heart attack Maternal Grandmother Pulmonary embolism Maternal Grandmother Stroke Maternal Grandmother Arthritis Mother Fibromyalgia Mother Pulmonary embolism Other No Known Problems Paternal Grandfather Diabetes Paternal Grandmother Heart attack Paternal Grandmother Heart disease Paternal Grandmother No Known Problems Sister 1 No Known Problems Sister 2 No Known Problems Sister 3 Relation Status Comments Brother Alive Father Alive Maternal Grandfather Alive Maternal Grandmother (Age 55) Mother Alive Other Paternal Grandfather Alive Paternal Grandmother Alive Sister 1 Alive Sister 2 Alive Sister 3 Alive Social History Tobacco Use Types Packs/Day Years Used Date Smoking Tobacco: Never Smokeless Tobacco: Never Alcohol Use Standard Drinks/Week Comments No 0 (1 standard drink = 0.6 oz pur e alcohol) PHQ-2 Answer Date Recorded PHQ-2 Score 0 Sexually Active Control Partners Comments Yes Condom Male Sex and Gender Information Value Date Recorded Sex Assigned at Not on file Gender Identity Not on file Sexual Orientation Not on file Last Filed Vital Signs Vital Sign Reading Time Taken Comments Blood Pressure 96/52 10/20/2017 9:45 AM CDT Pulse 80 10/20/2017 9:45 AM CDT Temperature 36.8 C (98.3 F) 10/20/2017 9:45 AM C DT Respiratory Rate 18 06/07/2017 1:23 PM [employer]GER [employer] Oxygen Saturation 100% 10/20/2017 9:45 AM CDT Inhaled Oxygen Concentration - - Weight 66.2 kg (146 lb) 10/20/2017 9:45 AM CDT Height 157.5 cm (5' 2") 10/20/2017 9:45 AM CDT Body Mass Index 26.7 10/20/2017 9:45 AM CDT Plan of Treatment Health Maintenance Due Date Last Done Comments COVID-19 Vaccine (#1) 1999 HPV Vaccines (2 - 2-dose series) 07/28/2012 01/26/2012 Hepatitis C Screening 2017 Cervical Cancer Screening 02/20/2020 Influenza Vaccine (#1) 2023 7, 02/25/2016, 04/21/2015, Additional history exists DTaP,Tdap,and Td Vaccines (8 - Td or Tdap) 12/19/2026 12/19/2016, 01/26/2012, 02/12/2005, Additional history exists HIB Vaccines Completed 06/08/2000 Pneumo-Vaccine: At Risk 6-64 Yrs Aged Out 08/12/2000 No longer eligible based on patient's age to complete this topic IPV Vaccines Completed 02/12/2005, 09/12, 1999, Additional history exists MMR Vaccines-Adult Completed 02/12/2005, 06/08/2000 Meningococcal Vaccine Aged Out 01/26/2012 No ray blade eligible based on patient's age to complete this topic Varicella Vaccines Completed 01/26/2012, 08/12/2000 Rotavirus Vaccines Aged Out No longer eligible based on patient's age to complete this topic Care Teams Nut Packer Relationship Specialty Start Date End Date Nallely Cornejo MD [address] [place] [address] [email or web address] PCP - General Internal Medicine 06/07/17 Hailey Naqvi MD [address] [place] [address] [email or web address] Hospitalist 04/21/15
--- OUTSIDE RECORDS SUMMARY | 2023-03-01 19:44 | XMS REPORT | Referral Summary ---
Author Author [facility] Organization [facility] Address Unknown Phone Unavailable Care Team Providers Care Carpenter Mine Name Role Phone NONE, PCP PCP Unavailable Encounter [facility] [id number] Date(s): 11/26/19 - 12/28/[address] [facility] [address] [place], [place] [address] Encounter Diagnosis Other tear of medial meniscus, current injury, right knee, subsequent encounter (Final) - Sprain of anterior cruciate ligament of right knee, subsequent encounter(Final) - Discharge Disposition: 01 O/P Home Attending Physician: Alie Issa Admitting Physician: Alie Issa Problem List Condition Effective Dates Status Health [...] ppx, # 42 tab, 0 Refill(s), Pharmacy: [facility] #[id number], 157, cm, 10/23/19 9:38:00 CDT, Height, 66.1, kg, 10/14/19 21:51:00 CDT, Weight Start Date: 11/08/19 Status: Ordered Mobic 15 mg oral tablet 15 mg = 1 tab, PO, qDay, with food; stop other NSAIDs while taking this medication, # 30 tab, 1 Refill(s), Pharmacy: [facility] #[id number], 157, cm, 10/23/19 9:38:00 CDT, Height, 66.1, kg, 10/14/19 21:51:00 CDT, Weight Start Date: 11/08/19 Status: Ordered Zofran 4 mg oral tablet 4 mg = 1 tab, PO, q6hr, 1-2 tab, # 20 tab, 1 Refill(s), Pharmacy: [facility] #[id number], 157,cm, 10/23/19 9:38:00 CDT, Height, 66.1, kg, 10/14/19 21:51:00 CDT, Weight Start Date: 11/08/19 Status: Ordered Procedures Procedure Date Related Diagnosis Body Site Status RT KA c ACL-R w/ autograft, MMrepair, CSS:100 11/09/19 Completed Extraction of wisdom tooth Completed Social History Social History Type Response Smoking Status Never smoker entered on: 10/14/19
--- OUTSIDE RECORDS SUMMARY | 2023-03-01 19:44 | XMS REPORT | Referral Summary ---
Author Author [facility] Organization [facility] Address Unknown Phone Unavailable Encounter Hospital Date(s): 10/14/19 - 10/14/19 [facility] [address] [place], [place] [address] Encounter Diagnosis Right knee sprain(Discharge Diagnosis) - 10/14/19 Right knee pain(Discharge Diagnosis) - 10/14/19 Discharge Disposition: 01 O/P Home Attending Physician: Susan Phillips Admitting Physician: Susan Phillips Vital Signs Most recent to oldest [Reference Range]: 1 2 Height FT 5.15 ft (10/14/19 9:51 PM) Height 157 cm (10/14/19 9:51 PM) Weight LBS 145.73 lb (10/14/19 9:51 PM) Blood Pressure Display 114 / 70 (10/14/19 11:14 PM) 104 / 70 (10/14/19 9:52 PM) BMI 26.82 (10/14/19 9:52 PM) Peripheral Pulse Rate [60-100 bpm] 91 bp m (10/14/19 11:13 PM) 92 bpm (10/14/19 9:51 PM) Temperature Oral [35.8-37.3 DegC] 37.1 D egC (10/14/19 11:13 PM) 36.8 DegC (10/14/19 9:51 PM) Allergies, Adverse Reactions, Alerts No Known Allergies Medications No Known Medications Social History Social History Type Response Smoking Status Never smoker entered on: 10/14/19 Functional Status COGNITIVE 10/14/19 Orientation Oriented x 3 Hospital Discharge Instructions Patient Education Crutches, Use of- no picture (Custom) Knee Immobilizer Knee Pain Follow Up Care 10/14/2019 21:47:22 With:Carlton Aldrich Address: [address] [facility] [address] [place] [address] Business (1) When:5 to 7 days Comments:Call the office to schedule follow up rest, ice, elevate, immobilize, crutches tylenol and/or ibuprofen as needed for pain control Discuss official radiology report at followup visit Return to ED if symptoms change, worsen, persist or concerns With:[facility] Address: [address] [place] [address] [phone] Business (1) When:2-3 days Comments:Melina will call you by the next business day to schedule your followup appointment. Please call Melina within 2-3 business days if you have not been contacted. Return to the ED for worsening or new symptoms or concerns.
--- OUTSIDE RECORDS SUMMARY | 2023-03-01 19:44 | XMS REPORT | Clinical Summary ---
Author Author [facility] Address Unknown Phone Unavailable Care Team Providers Care Assistant Public Defender Name Role Phone None, Pcp MD PCP Unavailable Source Comments [facility] (Labor and Delivery) documents do not appear in the [facility] Allergies No known active allergies Medications Please verify current medications with patient. No known medications Immunizations Name Administration Dates Next Due RABIES IMMUNE GLOBULIN 12/19/2016 Rabies-IM FIBROBLAST CULTURE 12/19/2016 TDAP VACCINE =>7YO IM ADSORBED 12/19/2016 Social History Tobacco Use Types Packs/Day Years Used Date Smoking Tobacco: Never Alcohol Use Standard Drinks/Week Comments No 0 (1 standard drink = 0.6 oz pur e alcohol) Sex Assigned at Date Recorded Not on file Last Filed Vital Signs [...] Mass Index 26.1 12/18/2016 10:21 PM CDT Plan of Treatment Health Maintenance Due Date Last Done Comments Hepatitis B Vaccine (1 of 3 - 3-dose series) 1999 COVID-19 Vaccine (#1) 1999 HPV Vaccine (1 - 2-dose series) 2010 Influenza Vaccine (#1) 2023 Hepatitis A Vaccine Aged Out No longe r eligible based on patient's age to complete this topic Hib Vaccine Aged Out No longer eligi ble based on patient's age to complete this topic IPV Vaccine Aged Out No longer eligi ble based on patient's age to complete this topic Meningococcal Vaccine (MCV4) Aged Out No longer eligible based on patient's age to complete this topic Pneumococcal Vaccine: Pediat rics (0 to 5 Years) and At-Risk Patients (6 to 64 Years) Aged Out No longer eligible b ased on patient's age to complete this topic Rotavirus Vaccine Aged Out No longer eligible based on patient's age to complete this topic Care Teams Assistant Public Defender Relationship Specialty Start Date End Date None, Pcp, PCP - General Other or Unknown Specialty 12/19/16
--- OUTSIDE RECORDS SUMMARY | 2023-03-01 19:45 | XMS REPORT | Encounter Summary ---
Author Author [facility] Organization [facility] Address Unknown Phone Unavailable Care Team Providers Care Road Test Examiner Name Role Phone PCP Unavailable Encounter Details Date Type Department Care Team Description 12/18/2016 10:05 PM CDT - 12/19/2016 1:34 AM CDT Emergency [facility] Emergency Department [address] [phone] Bitten by raccoon Discharge Disposition: Home or Self Care Social History Tobacco Use Types Packs/Day Years Used Date Smoking Tobacco: Never Assessed Sex and Gender Information Value Date Recorded Sex Assigned at Not on file Gender Identity Not on file Sexual Orientation Not on file documented as of this encounter Plan of Treatment Not on file documented as of this encounter Visit Diagnoses Diagnosis Bitten by raccoon documented in this encounter
--- OUTSIDE RECORDS SUMMARY | 2023-03-01 19:45 | XMS REPORT ---
Author Joan Kwon Organization Unknown Address [address] [facility], [address] [place], [place] [id number] Care Team Providers Care Computer Systems Technician Name Role Phone Renetta Vasquez Unavailable Lauren Douglas Unavailable Problem List * Asthma (disorder) : Status - Active Immunizations No known immunization history Physical Examination Provider Physical Examination Created Fabio tameka Douglas General Appearance - Well developed, No acute distress. Normal habitus and grooming. Skin:-warm, dry, intactPubic hair:-no abnormalities noted- Pubic hair is shaved, areas of scattered folliculitis present.Inguinal nodes:-no tenderness, no lymphadenopathyExternal Rectum/anus/perineum-normal sphincter tone, no masses, no bloodVulva vagina:-Vulva appears normal.No edema or erythema present. Per Speculum Exam:Vagina: Unhealthy, malodorous, erythema present.Cervix:-moist, pink, qur-quwsttt-hpfvepjxf present. Thin clear, watery, mucoid discharge present. Bimanual:Uterus of normal size and shape. No motion tenderness. 05-30-2019 Encounters Diagnosis Encounter Location Date Syphilis suspected on epidem iological grounds [facility], [facility], [address] [facility], [address], [place], [place] [id number] 05-30-2019 Procedures No Procedure information Vital Signs Date Height Weight Blood Pressure Respiratory Rate Heart Rate Body Temperature BMI O2 % BldC Oximetry Inhaled Oxygen Concentration 05-30 160cm 64kg 100/62mm[ Hg] 25.0 kg/m 2 Allergies, Adverse Reactions, Alerts Substance Reaction Severity Status No Known Allergies Active Medications Administered During Visit Metronidazole 500 mg/1 TABLET, FILM COATED ,1 tab PO daily; Jailyn Kit ,1 tab PO daily; Diagnostic Results Laboratory: In-House Result Type Result Value Relevant Reference Range Interpre tation Date Bilirubin negative ( ) Normal 07/31/2018 Blood positive ( ) Abnormal 07/31/2018 Clue absent ( ) Normal 07/31/2018 Chlamydia Negative ( ) Normal 07/31/2018 Gonorrhea Negative ( ) Normal 07/31/2018 Glucose negative ( ) Normal 07/31/2018 HIV Negative ( ) Normal 07/31/2018 Ketone positive ( ) Abnormal 07/31/2018 Nitrate negative ( ) Normal 07/31/2018 Ph 5 ( ) Abnormal 07/31/2018 Ph 5 ( ) Normal 07/31/2018 Protein positive ( ) Abnormal 07/31/2018 RPR - Syphilis Non-Reactive ( ) Normal 07/31/19 Trichomoniasis present ( ) Abnormal 07/31/2018 Urobilinogen .2 ( ) Normal 07/31/2018 Specific [place] 1.020 ( ) Normal 07/31/19 Leukocytes positive ( ) Abnormal 07/31/2018 Leukocytes negative ( ) Normal 07/31/2018 Whiff absent ( ) Normal 07/31/2018 Yeast absent ( ) Normal 07/31/2018 Whiff Present (Absent ) Abnormal 05/30/2019 Yeast Absent (Absent ) Normal 05/30/2019 Leukocytes Negative (Negative ) Normal 05/30/2019 Clue Cells Present (Absent ) Abnormal 05/30/2019 Trich Absent (Absent ) Normal 05/30/2019 pH 4.5 ( ) Abnormal 05/30/2019 Functional Status No Functional Status information Clinical instructions Treatment Plan Planned Activity Planned Date Magalie:\r\n 05-30-2019 [facility] - 05-30-2019 [facility] adult profile 05-30-2019 [facility] program visit form - adult 05-30-20 19 Family planning service form 05-30-2019 Cl here for STI testing. Aft er much discussion regarding sexual habits, Cl decided to also start control. Gave CL one pack of Boyle. Consent form signed. Discussed how to use the method and risks/ side effects of method. Wet prep was also positive for BV. Tx with Metronidazole per protocol. Informed cl to abstain from sex for 7 days and ETOH until 24 hours after completing the tx. Education provided about BV, risks factors for BV and the tx plan. Cl expressed understanding. Cl denied any allergies to any medications. 05-30-2019 Plan of care procedure Insurance Providers Payer Name Policy Type / Coverage Type Policy ID Covered Green Party ID Policy Rogel Self pay Primary Insurance SELF Self
--- OUTSIDE RECORDS SUMMARY | 2023-03-01 19:45 | XMS REPORT | Referral Summary ---
Author Author [facility] Organization [facility] Address Unknown Phone Unavailable Care Team Providers Care Drug Enforcement Agent Name Role Phone NONE, PCP PCP Unavailable Encounter Clinic Date(s): 11/13/19 - 11/13/19 [place] [id number] [address]- Encounter Diagnosis Acute tear of medial meniscus of right knee(Discharge Diagnosis) - 11/13/19 Tear of anterior cruciate ligament of right knee(Discharge Diagnosis) - 11/13/19 Surgical follow-up(Discharge Diagnosis) - 11/13/19 Discharge Disposition: [facility] Home Attending Physician: Alie Issa Referring Physician: Alie Issa Vital Signs Most recent to oldest [Reference Range]: 1 Height FT 5.15 ft (11/13/19 1:44 PM) Height 157 cm (11/13/19 1:44 PM) Weight LBS 145.73 lb (11/13/19 1:44 PM) Weight, Measured 66.1 kg (11/13/19 1:44 PM) BMI 26.82 (11/13/19 1:53 PM) Temperature Temporal Artery [36.3-37.8 D egC] 37.1 DegC (11/13/19 1:44 PM) Problem List Condition Effective Dates Status [...] ppx, # 42 tab, 0 Refill(s), Pharmacy: [facility] #[id number], 157, cm, 10/23/19 9:38:00 CDT, Height, 66.1, kg, 10/14/19 21:51:00 CDT, Weight Start Date: 11/08/19 Status: Ordered Mobic 15 mg oral tablet 15 mg = 1 tab, PO, qDay, with food; stop other NSAIDs while taking this medication, # 30 tab, 1 Refill(s), Pharmacy: [facility] #[id number], 157, cm, 10/23/19 9:38:00 CDT, Height, 66.1, kg, 10/14/19 21:51:00 CDT, Weight Start Date: 11/08/19 Status: Ordered traMADol 50 mg oral tablet 50 mg = 1 tab, PO, q4hr, for pain, # 12 tab, 145.73 Start Date: 10/23/19 Status: Ordered Zofran 4 mg oral tablet 4 mg = 1 tab, PO, q6hr, 1-2 tab, # 20 tab, 1 Refill(s), Pharmacy: [facility] #[id number], 157,cm, 10/23/19 9:38:00 CDT, Height, 66.1, kg, 10/14/19 21:51:00 CDT, Weight Start Date: 11/08/19 Status: Ordered Procedures Procedure Date Related Diagnosis Body Site Status Extraction of wisdom tooth Completed Social History Social History Type Response Smoking Status Never smoker entered on: 10/14/19 Assessment and Plan Extracted from: Title:Ortho Office Visit Note Author:Jenniffer Issa Date:11/13/19 IMPRESSION: Postoperative fr om above, right knee PLAN: Today we reviewed surgical photos. I recommend that the patient continue touchdown weightbearing for 2 weeks. I've instructed the patient on quadriceps sets and range of motion exercises emphasizing achieving full extension. I recommended a goal of achieving 0-90 degrees around 2 weeks postoperative.I recommend she begin formal physical therapy next week.I've also suggested continuing daily aspirin for DVT prophylaxis. I'll see the patient back in2 weeks at which point we will discontinue sutures.She is amenable to call with questions or concerns in theinterim. Documentation assistance provided by amie Jensen. Information recorded by the scribe was done at my direction. Information recorded by the scribe has been revised and validated by Alie alarcon PA-C Goals No goals documented Follow-Up Information With: Johnnie Jordan MDWithin: 1 week
--- OUTSIDE RECORDS SUMMARY | 2023-03-01 19:45 | XMS REPORT | Clinical Summary ---
Author Author [facility] Organization [facility] Address Unknown Phone Unavailable Care Team Providers Care Timekeeper Name Role Phone PCP Unavailable Immunizations Name Administration Dates Next Due Rabies 12/19/2016 Tdap 12/19/2016 Social History Tobacco Use Types Packs/Day Years Used Date Smoking Tobacco: Never Alcohol Use Standard Drinks/Week Comments No 0 (1 standard drink = 0.6 oz pur e alcohol) Sex and Gender Information Value Date Recorded Sex Assigned at Not on file Gender Identity Not on file Sexual Orientation Not on file Plan of Treatment Not on file
--- OUTSIDE RECORDS SUMMARY | 2023-03-01 19:45 | XMS REPORT | Referral Summary ---
Author Author [facility] Organization [facility] Address Unknown Phone Unavailable Encounter Hospital Date(s): 10/17/19 - 10/17/19 [facility] [address] [place] [id number] Discharge Disposition: 01 O/P Home Attending Physician: Luz Saez DO Admitting Physician: Luz Saez DO Problem List Condition Effective Dates Status Health Status Inform ant Overweight(Confirmed) Active Allergies, Adverse Reactions, Alerts No Known Allergies Medications traMADol 50 mg oral tablet 50 mg = 1 tab, PO, q6hr, For Pain, X 3 day, # 12 tab, 0 Refill(s), Pharmacy: [facility] #[id number], 157, cm, 10/16/19 13:42:00 CDT, Height, 66.1, kg, 10/14/19 21:51:00 CDT, Weight Start Date: 10/18/19 Stop Date: 10/21/19 Status: Ordered Social History Social History Type Response Smoking Status Never smoker entered on: 10/14/19
--- OUTSIDE RECORDS SUMMARY | 2023-03-01 19:45 | XMS REPORT | Referral Summary ---
Author Author [facility] Organization [facility] Address Unknown Phone Unavailable Care Team Providers Care Firebrick Layer Name Role Phone NONE, PCP PCP Unavailable Encounter Clinic Date(s): 11/22/19 - 11/22/19 [place] [id number] [address]- Encounter Diagnosis Acute tear of medial meniscus of right knee(Discharge Diagnosis) - 11/22/19 Surgical follow-up(Discharge Diagnosis) - 11/22/19 Tear of anterior cruciate ligament of right knee(Discharge Diagnosis) - 11/22/19 Discharge Disposition: [facility] Home Attending Physician: Alie Issa Referring Physician: Johnnie Jordan MD Vital Signs Most recent to oldest [Reference Range]: 1 Height FT 5.15 ft (11/22/19 1:28 PM) Height 157 cm (11/22/19 1:28 PM) Weight LBS 145.73 lb (11/22/19 1:28 PM) Weight, Measured 66.1 kg (11/22/19 1:28 PM) Blood Pressure Display 101 / 73 (11/22/19 1:42 PM) BMI 26.82 (11/22/19 1:42 PM) Peripheral Pulse Rate [60-100 bpm] 129 b pm *HI* (11/22/19 1:28 PM) Temperature Tympanic [36.6-38.1 DegC] 37 .2 DegC (11/22/19 1:28 PM) Problem List Condition Effective Dates Status [...] ppx, # 42 tab, 0 Refill(s), Pharmacy: [facility] #[id number], 157, cm, 10/23/19 9:38:00 CDT, Height, 66.1, kg, 10/14/19 21:51:00 CDT, Weight Start Date: 11/08/19 Status: Ordered Mobic 15 mg oral tablet 15 mg = 1 tab, PO, qDay, with food; stop other NSAIDs while taking this medication, # 30 tab, 1 Refill(s), Pharmacy: [facility] #[id number], 157, cm, 10/23/19 9:38:00 CDT, Height, 66.1, kg, 10/14/19 21:51:00 CDT, Weight Start Date: 11/08/19 Status: Ordered traMADol 50 mg oral tablet 50 mg = 1 tab, PO, q4hr, for pain, # 12 tab, 145.73 Start Date: 10/23/19 Status: Ordered Zofran 4 mg oral tablet 4 mg = 1 tab, PO, q6hr, 1-2 tab, # 20 tab, 1 Refill(s), Pharmacy: [facility] #[id number], 157,cm, 10/23/19 9:38:00 CDT, Height, 66.1, kg, 10/14/19 21:51:00 CDT, Weight Start Date: 11/08/19 Status: Ordered Procedures Procedure Date Related Diagnosis Body Site Status Extraction of wisdom tooth Completed Social History Social History Type Response Smoking Status Never smoker entered on: 10/14/19 Assessment and Plan Extracted from: Title:Ortho Office Visit Note Author:eJnniffer Issa Date:11/22/19 1.Acute tear of medial men iscus of right knee 2.Surgical follow-up 3.Tear of anterior cruciate ligament of right knee IMPRESSION: Doing well postoperative from ACL reconstruction PLAN: I would recommend thatKyia initiate formal physical therapy. We will discontinue use of crutches and progress to weightbearing as toleratedunder the guidance of physical therapy. We discussed the importance of continue to work on extension with respect to range of motion. I'll see them back in2 weeks at which point we continue to monitor progress with respect to range of motion. I recommended continuing a daily aspirin for DVT prophylaxis. They are amenable to contacting the office with questions or concerns in the interim. Dragon Disclaimer: This note was dictated in part using Voice Recognition. It may contain unintended or unrecognizable text which was not found during editing. Goals No goals documented Follow-Up Information With: Johnnie Jordan MDWithin: 2 weeks
--- OUTSIDE RECORDS SUMMARY | 2023-03-01 19:45 | XMS REPORT | CLINICAL SUMMARY ---
Author Author MACKENZIE Fiore PROCESS CONTROL SUPERVISOR [facility] [address] Address [address] [place] [address] Phone Unavailable Care Team Providers Care Lens Molder Name Role Phone Sravanthi Fiore NP Unavailable [phone] Corky Fischer Unavailable [phone] Cherelle Conte Unavailable [phone] SOCIAL HISTORY Social History Observation Description Dates Observed Sex Female 2000 None recorded VITAL SIGNS BMI Body Mass Index Percentile Date Systolic Diastolic Head Circumference Head Circumference Percentile Height Oxygen Concentration Pulse Pulse Oximeter Respiratory Rate Temperature Weight Vnudwl-gvw-gdogjj Percentile 24.7 99 kg/m 2 Unknown 72 Unknown Unknown Unknown Unknown 63 [in_i] Unknown 92 /min 100 % 20 /min 99.1 140 [lb_av] Unknown ALLERGIES AND ADVERSE REACTIONS No known allergies MEDICATIONS No medication information recorded PROBLEM LIST Names Dates Status Asthma No date recorded active Rash (782.1, R21) 20180218 suspended Contact with and (suspected) exposure to other viral communicable diseases 20210105 active FAMILY HISTORY ENCOUNTERS Encounter Performer Location E/M Code E/M Label Date Diagnosi s visit Sravanthi Fiore [facility] [address] [address] Office or other outpatient visit (detailed) 20210105 Contact with and (suspected) exposure to other viral communicable diseases LAB RESULTS Overall Code Overall Text [Code] Result Type (Code) Result Text Result Value Relevant Reference Range Date Lab Name [facility] Zip Code No overall lab code recorded COVID 19 Antigen, RAPID [48298] 40018-6 COVID 19 Antigen , RAPID [14299] Negative Normal = Negative [facility] [place] [address] [facility] [phone] INSURANCE PROVIDERS (PAYERS) Payer name Policy type / Coverage type Policy ID Covered alliance party ID Insurance type Policy Rogel [employer] Unknown [id number] None Recorded PRIMARY KYIA MCWILLIAM S PROCEDURE NOTE Date Name Status Summary Text (N otes) 20210105 COVID 19 Antigen, RAPID Completed COVI D 19 Antigen, RAPID [[id number]] QTY(1) Control Line Valid None recorded None recorded None recorded None recorde d 20210105 COVID 19 Antigen, RAPID Completed COVI D 19 Antigen, RAPID [[id number]] QTY(1) Control Line Valid PROCEDURES Date Name Status Summary Text (N otes) 20210105 COVID 19 Antigen, RAPID Completed COVI D 19 Antigen, RAPID [01514] QTY(1) Control Line Valid None recorded None recorded None recorded None recorde d 20210105 COVID 19 Antigen, RAPID Completed COVI D 19 Antigen, RAPID [20521] QTY(1) Control Line Valid LABORATORY REPORT NARRATIVE NOTE No information recorded PATHOLOGY REPORT NARRATIVE NOTE No information recorded IMAGING NARRATIVE Result Code Result Text Date Status Urgency Interp retation None None None None None None DISCHARGE SUMMARY NOTE * Allergies: No known allergies * Medication Current: No medication information recorded * Plan of Care (advice, pending tests, pending diagnostic tests): Treatment Type Code Text Date Observatio n Data Instruction [id number] Patient Education 2021-01-05 Your r apid COVID-19 test is NEGATIVE. Instruction [id number] Patient Education 2021-01-05 Discus sed with the patient the limitations to our antigen test including the possibility of their test being a false negative as the sensitivity of the test is 84%. Knowing this, the patient is declining confirmatory PCR testing. Instruction [id number] Patient Education 2021-01-05 YOU STEWART VE HAD AN EXPOSURE TO COVID-19. PER CDC AND STATE REGULATIONS YOU WILL BE REQUIRED TO COMPLETE A 10 DAY QUARANTINE FROM THE LAST DAY OF EXPOSURE. * Visit Diagnosis: Contact with and (suspected) exposure to other viral communicable diseases (Z20.828) * Referrals: First Name Last Name NPI# Reason None recorded None recorded None recorded None recorde d HISTORY AND PHYSICAL NOTE * Reason for Visit: Patient Reports: COVID Asymptomatic [Assoc. Sx: Denies Loss of smell, Loss of taste; Free text: Asymptomatic COVID Testing.; Context: Denies Recent travel, previously diagnosed with COVID-19, Currently experiencing symptoms Reports COVID-19 contact or exposure within last 14 days]. * Family History: * * Allergies: No known allergies * Problems: Names Dates Status Asthma No date recorded active Rash (782.1, R21) 20180218 suspended Contact with and (suspected) exposure to other viral communicable diseases 20210105 active * Vitals: BMI Body Mass Index Percentile Date Systolic Diastolic Head Circumference Head Circumference Percentile Height Oxygen Concentration Pulse Pulse Oximeter Respiratory Rate Temperature Weight Ocpcpl-fde-ohnrxl Percentile 24.7 99 kg/m 2 Unknown [id number] Unknown Unknown Unknown Unknown 63 [in_i] Unknown 92 /min 100 % 20 /min 99.1 140 [lb_av] Unknown * Review of Systems: * Cardiovascular* Patient Denies* Chest pain * Constitutional* Patient Denies* Chills * Fever * Sweats * Endocrine* Patient Denies* Fatigue * ENT/Mouth* Patient Denies* Congestion * Nasal drainage * Sore throat * Eyes* Patient Denies* Eye redness * GI* Patient Denies* Abdominal pain * Diarrhea * Nausea * Vomiting * Navarro/Lymph* Patient Denies* Swollen lymph nodes * Musc/Skel* Patient Denies* Arthralgia * Myalgia * Neurologic* Patient Denies* Headache * Respiratory* Patient Denies* Cough * Shortness of breath * SOB * Wheezing * Skin/Breast* Patient Denies* Erythema * Rash * Exam: * General : Normal* Normal : Vital signs were noted by provider,Patient noted to have a non-toxic appearance on exam,Noacute distress,Physical development normal * Psych : Normal* Normal : Patient is oriented to time, place and person * Eyes : Normal* Normal : Lids and lashes are normal, without swelling, mass, or erythema,Normal conjunctivae without erythema, injection, or pallor,Sclera normal * Chest/Lungs : Normal* Normal : Normal respiration, rhythm and depth upon exam,No pursed lip breathing noted upon exam * Skin, Hair, Nails : Normal* Normal : No pallor noted,Patient is not diaphoretic,No clamminess noted on exam,No rashes noted * Plan of Care (advice, pending tests, pending diagnostic tests): Treatment Type Code Text Date Observatio n Data Instruction [id number] Patient Education 2021-01-05 Your r apid COVID-19 test is NEGATIVE. Instruction [id number] Patient Education 2021-01-05 Discus sed with the patient the limitations to our antigen test including the possibility of their test being a false negative as the sensitivity of the test is 84%. Knowing this, the patient is declining confirmatory PCR testing. Instruction [id number] Patient Education 2021-01-05 YOU STEWART VE HAD AN EXPOSURE TO COVID-19. PER CDC AND STATE REGULATIONS YOU WILL BE REQUIRED TO COMPLETE A 10 DAY QUARANTINE FROM THE LAST DAY OF EXPOSURE. * Lab Results: Overall Code Overall Text [Code] Result Type (Code) Result Text Result Value Relevant Reference Range Date Lab Name [facility] Zip [facility] No overall lab code recorded COVID 19 Antigen, RAPID [56011] 58[address]-9 COVID 19 Antigen , RAPID [76803] Negative Normal = Negative [facility] [place] [address] [place] [address] * Radiology Results: Overall Code Overall Text [Code] Result Type (Code) Result Text Result Value Relevant Reference Range Date Lab Name [facility] Zip [facility] None recorded None recorded None recorded None recorded None recorded None recorded None recor ded None recor ded None recorde d None recor ded None record ed None recor ded * Visit Diagnosis: Contact with and (suspected) exposure to other viral communicable diseases (Z20.828) * Referrals: First Name Last Name NPI# Reason None recorded None recorded None recorded None recorde d PLAN OF TREATMENT Treatment Type Code Text Date Instructio n Data Instruction [id number] Patient Education 2021-01-05 Your r apid COVID-19 test is NEGATIVE. Instruction [id number] Patient Education 2021-01-05 Discus sed with the patient the limitations to our antigen test including the possibility of their test being a false negative as the sensitivity of the test is 84%. Knowing this, the patient is declining confirmatory PCR testing. Instruction [id number] Patient Education 2021-01-05 YOU STEWART VE HAD AN EXPOSURE TO COVID-19. PER CDC AND STATE REGULATIONS YOU WILL BE REQUIRED TO COMPLETE A 10 DAY QUARANTINE FROM THE LAST DAY OF EXPOSURE. CHIEF COMPLAINT AND REASON FOR VISIT NARRATIVE Patient Reports: COVID Asymptomatic [Assoc. Sx: Denies Loss of smell, Loss of taste; Free text: Asymptomatic COVID Testing.; Context: Denies Recent travel, previously diagnosed with COVID-19, Currently experiencing symptoms Reports COVID-19 contact or exposure within last 14 days].
[2023-03-01 19:47] VITALS: BP 112/68
[2023-03-01] MEDS ORDERED: LACTATED RINGERS 1,000 ML 500 ML IV PRN (20:00)
[2023-03-01] MEDS ORDERED: MINERAL OIL 30 ML UDC TOP PRN (20:00)
--- NOTE | 2023-03-01 20:18 | History & Physical-OB ---
LISANDRA ROMERO MD,RESIDENT 03/01/23 2018: OB - Chief Complaint & HPI Date/Time Date of Admission: Date of Admission: Mar 01, 2023 at 19:41 Date seen by a Provider: Mar 01, 2023 Time Seen by a Provider: 20:15 Chief Complaint/History OB-Reason for Admission/Chief: Induction of Labor Hx : 1 Hx Para: 0 Expected Date of Delivery: Mar 03, 2023 Gestational Age in Weeks: 39 Gestational Age in Days: 4 Indication for induction: other (Elective) Allergies and Home Medications Allergies Coded Allergies: No Known Drug Allergies (Unverified , 01/09/09) Patient Home Medication List Home Medication List Reviewed: Yes Albuterol (Ventolin) 17 Gm Aerosol, (Reported) Entered as Reported by: ADAL ORONA on 01/09/092208 Ondansetron (Ondansetron Odt) 4 Mg Tab.rapdis, 4 MG SL Q8H PRN for NAUSEA/VOMITING Prescribed by: ONUR CHACKO on 07/11/22 0236 OB - History Hx of Present Care: Yes Ultrasounds: Normal mid trimester US Obstetrical Complications: None Medical Complications: None Patient Past Medical History No significant medical history. Social History/Family History 2nd Hand Smoke Exposure: No OB - Admission Exam Physical Exam Heart: Rhythm Normal Lungs: Clear Abdomen: Gravid Extremities: Normal Cervical Dilatation: 2cm Effacement: 25% Station: -3 Membranes: Intact Heart Rate: 140's Accelerations: Accelerations Present Decelerations: No Decelerations Short Term Variability: Present Chcf Variability: Average (6-25) Contractions on Admission: None Intensity: Mild Jones Scoring Tool (Modified) Dilation (cm): 1-2cm (1) Effacement (%): 0-30% (0) Descent/Station: -3 (0) Cervix Consistency: Medium(1) Cervix Position: Posterior (0) Jones Score: 2 OB - Assessment/Plan/Diagnosis Assessment Assessment: induction of labor Admission Dx Induction of labor Admission Status: Inpatient Order (span 2 midnights) Reason for Inpatient Admission: Induction of labor Plan Plan: Induction Induction Method: per Misoprostol Protocol Problems: (1) 39 weeks gestation of Assessment & Plan: Anticipate routine induction of labor. (2) Elective induction of labor planned Assessment & Plan: Cervical ripening via Cytotec. MICK VANG MD 03/02/23 0804: Allergies and Home Medications Allergies Coded Allergies: No Known Drug Allergies (Unverified , 01/09/09) Patient Home Medication List Albuterol (Ventolin) 17 Gm Aerosol, (Reported) Entered as Reported by: ADAL ORONA on 01/09/09 7717 Ondansetron (Ondansetron Odt) 4 Mg Tab.rapdis, 4 MG SL Q8H PRN for NAUSEA/VOMITING Prescribed by: ONUR CHACKO on 07/11/22 0236 Supervisory-Addendum Brief Supervisory Addendum I personally performed the mora portions of the visit, discussed case with resident and concur with resident documentation of history, physical exam, assessment and treatment plan unless otherwise noted. I saw the patient on 03/02/23 at 0745 am, see Labor progress note for my physical exam. LISANDRA ROMERO MD,RESIDENT Mar 01, 2023 20:18 MICK VANG MD Mar 02, 2023 08:04
[2023-03-01 20:39] LABS: BASOPHILS % (AUTO) 0 % (0-10); EOSINOPHILS # (AUTO) 0.1 10^3/uL (0.0-0.3); EOSINOPHILS % (AUTO) 1 % (0-10); HEMATOCRIT 34 % (35-52); HEMOGLOBIN 11.1 g/dL (11.5-16.0); LYMPHOCYTES # (AUTO) 1.7 10^3/uL (1.0-4.0); LYMPHOCYTES % (AUTO) 18 % (12-44); MEAN CORPUSCULAR HEMOGLOBIN 30 pg (25-34); MEAN CORPUSCULAR HGB CONC 33 g/dL (32-36); MEAN CORPUSCULAR VOLUME 90 fL (80-99); MONOCYTES # (AUTO) 0.8 10^3/uL (0.0-1.0); MONOCYTES % (AUTO) 8 % (0-12); NEUTROPHILS # (AUTO) 6.7 10^3/uL (1.8-7.8); NEUTROPHILS % (AUTO) 71 % (42-75); PLATELET COUNT 194 10^3/uL (130-400); WHITE BLOOD COUNT 9.4 10^3/uL (4.3-11.0)
[2023-03-01 20:47] VITALS: BP 112/68
[2023-03-01] MEDS: D5 LR 1,000 ML IV SOLN 1,000 ML IV SCH (20:53)
[2023-03-01 22:13] LABS: BACTERIA,URINE FEW /HPF; BILIRUBIN,URINE NEGATIVE (NEGATIVE); CLARITY,URINE CLEAR; COLOR,URINE ORANGE; GLUCOSE, URINE (UA) NEGATIVE (NEGATIVE); KETONES,URINE NEGATIVE (NEGATIVE); LEUKOCYTE ESTERASE ,URINE NEGATIVE (NEGATIVE); NITRITE,URINE NEGATIVE (NEGATIVE); PH,URINE 5.5 (5-9); PROTEIN,URINE NEGATIVE (NEGATIVE); WBC,URINE 0-2 /HPF
[2023-03-01 22:14] LABS: AMORPHOUS SEDIMENT,UR MOD AMOR URATES /LPF
[2023-03-01 23:38] VITALS: BP 124/69
[2023-03-02] VITALS (60 sets, daily range): BP systolic 77–117; BP diastolic 40–74
[2023-03-02] MEDS ORDERED: ACETAMINOPHEN 500 MG TABLET ONE (03:30)
[2023-03-02] MEDS ORDERED: ACETAMINOPHEN 500 MG TABLET PO PRN (03:30)
[2023-03-02] MEDS: D5 LR 1,000 ML IV SOLN 1,000 ML IV SCH ×2 (03:41→11:16)
--- NOTE | 2023-03-02 08:01 | Labor Progress Note ---
Labor Progress Note Labor Progress Note Date Seen by Provider: Mar 02, 2023 Time Seen by Provider: 07:50 Subjective: Pt hurting with contractions. Objective: Cervical exam: 3.5/40/-1 Consistency: soft Position: posterior Presentation: vertex heart tones: 130 beats per minute, moderate variability, reactive Tocometer: 3 ctx/10 minutes Assessment/Plan: Joan Blevins is a (23 /Para 1 / 0,Gestational Age (wks)38 here for induction of labor. AROM done at time of exam with clear fluid. CEFM/TOCO Start pitocin Anesthesia: none Anticipate vaginal delivery. Vitals - Labs Vital Signs - I&O Vital Signs Date Time Temp Pulse Resp B/P (MAP) Pulse Ox O2 Delivery O2 Flow Rate FiO2 03/02/23 03:38 114/57 (76) 03/02/23 02:52 36.7 03/01/23 23:38 36.9 79 18 124/69 (87) 100 Room Air 03/01/23 20:47 36.9 86 18 112/68 (83) 99 Room Air 03/01/23 19:47 36.9 86 18 99 Room Air Labs Laboratory Tests 03/01/23 20:15: White Blood Count 9.4, Red Blood Count 3.75L, Hemoglobin 11.1L, Hematocrit 34L, Mean Corpuscular Volume 90, Mean Corpuscular Hemoglobin 30, Mean Corpuscular Hemoglobin Concent 33, Red Cell Distribution Width 13.9, Platelet Count 194, Mean Platelet Volume 12.0, Immature Granulocyte % (Auto) 1, Neutrophils (%) (Auto) 71, Lymphocytes (%) (Auto) 18, Monocytes (%) (Auto) 8, Eosinophils (%) (Auto) 1, Basophils (%) (Auto) 0, Neutrophils # (Auto) 6.7, Lymphocytes # (Auto) 1.7, Monocytes # (Auto) 0.8, Eosinophils # (Auto) 0.1, Basophils # (Auto) 0.0, Immature Granulocyte # (Auto) 0.1, Syphilis Total Antibody Negative 03/01/23 21:40: Urine Color ORANGE, Urine Clarity CLEAR, Urine pH 5.5, Urine Specific [place] 1.025H, Urine Protein NEGATIVE, Urine Glucose (UA) NEGATIVE, Urine Ketones NEGATIVE, Urine Nitrite NEGATIVE, Urine Bilirubin NEGATIVE, Urine Urobilinogen 1.0, Urine Leukocyte Esterase NEGATIVE, Urine RBC (Auto) NEGATIVE, Urine RBC NONE, Urine WBC 0-2, Urine Squamous Epithelial Cells 10-25H, Urine Crystals PRESENTH, Urine Amorphous Sediment MOD RC URATESH, Urine Bacteria FEWH, Urine Casts NONE, Urine Mucus LARGEH, Urine Culture Indicated NO MICK VANG MD Mar 02, 2023 08:01
[2023-03-02] MEDS ORDERED: fentaNYL 2 mcg/ml BUPIVA 0.125 100 ML ONE (08:02)
[2023-03-02] MEDS ORDERED: OXYTOCIN DRIP PRE-MIX 500 ML IV SCH ×3 (08:30→18:30)
[2023-03-02] MEDS ORDERED: ONDANSETRON INJECTION 4 MG/2 ML (SDV) IVP PRN (08:30)
[2023-03-02] MEDS ORDERED: fentaNYL INJECTION 100 MCG/2 ML VIAL ONE (08:40)
[2023-03-02] MEDS ORDERED: BUPIVACAINE 0.25% 10 ML VIAL ONE (08:40)
[2023-03-02] MEDS: fentaNYL 2 mcg/ml BUPIVA 0.125 100 ML EPI SCH ×2 (09:11→17:11)
[2023-03-02] MEDS ORDERED: diphenhydrAMINE INJ 50 MG/ML VIAL IV PRN (09:45)
[2023-03-02] MEDS ORDERED: NALOXONE 0.4 MG/ML 1 ML VIAL IV PRN (09:45)
[2023-03-02] MEDS ORDERED: CATHETER FLUSH 10 ML SYR IV PRN (09:45)
[2023-03-02] MEDS ORDERED: ONDANSETRON INJECTION 4 MG/2 ML (SDV) IV PRN (09:45)
[2023-03-02] MEDS ORDERED: LACTATED RINGERS 1,000 ML 1,000 ML IV ONE (09:45)
[2023-03-02] MEDS ORDERED: LIDOCAINE 2% w/EPI 1:200,000 20 ML VIAL ONE (15:37)
--- NOTE | 2023-03-02 18:19 | OB Labor & Delivery Record ---
LISANDRA ROMERO MD,RESIDENT 03/02/231818: Vag Delivery Note Vag Delivery Note Date of Delivery: 03/02/23 Preoperative Diagnosis: Joan camargo a (23 /Para 1 / 0,Gesta tional Age (wks)38 Postoperative Diagnosis: Same Surgeon/Physician: HEATHER DUGAN Surgeon/Physician: Mick Vang Ribbon Winder: Walt Campbell, MS4 Anesthesia: Epidural Delivery Type: Spontaneous vaginal Findings: Viable female infant, apgars 5, 9, weight 6lbs 11oz Lacerations: Bilateral periurethral labial abrasions Intact placenta with 3 vessel cord. Nuchal cord x1, no body cord or shoulder dystocia Estimated Blood Loss: 100 ml Complications: None Condition: Stable Description of Procedure: The patient is a 23 year old female who presented for IOL. She was admitted and informed consent was obtained. Her labor course was uncomplicated. She progressed to complete dilatation and began to push. She was then set up for delivery. The 's head was delivered atraumatically in the FLOR[place] position with 1x nucal cord. The shoulders and remainder of the 's body were then delivered without difficulty. Upon delivery, the was non-vigorous so cord was clamped and cut. Infant was immediately placed in warmer. The mouth and nares were bulb suctioned. An intact placenta with 3- vessel cord delivered via Adolfo and there was found to be minimal bleeding.~ Vigorous fundal massage was performed and the fundus was found to be firm. IV oxytocin was given. Examination of the vagina and perineum revealed bilateral periurethral labial abrasions that were hemostatic, not requiring repair. Foll owing the repair, sponge, instrument and needle counts were correct. Mom and baby were both in stable condition in the labor suite. Vitals - Labs Vital Signs - I&O Vital Signs Date Time Temp Pulse Resp B/P (MAP) Pulse Ox O2 Delivery O2 Flow Rate FiO2 03/02/23 15:20 75 18 107/59 (75) 100 Room Air 03/02/23 15:06 80 18 103/62 (76) 99 Room Air 03/02/23 14:49 71 18 105/66 (79) Room Air 03/02/23 14:34 92 18 104/62 (76) 100 Room Air 9/20/23 14:20 78 18 106/53 (70) 100 Room Air 03/02/23 14:04 83 18 97/54 (68) 100 Room Air 03/02/23 13:50 36.7 73 18 108/50 (69) 100 Room Air 03/02/23 13:34 76 18 100/59 (73) 98 Room Air 03/02/23 13:20 71 18 97/56 (70) 98 Room Air 03/02/23 13:14 74 18 91/54 (66) 96 Room Air 03/02/23 13:04 72 18 88/54 (65) 96 Room Air 03/02/23 12:51 72 18 89/50 (63) 98 Room Air 03/02/23 12:35 78 18 110/62 (78) 99 Room Air 03/02/23 12:22 36.7 03/02/23 12:20 76 18 107/62 (77) 98 Room Air 03/02/23 12:03 83 18 101/66 (78) 97 Room Air 03/02/23 11:49 77 18 93/59 (70) 99 Room Air 03/02/23 11:34 80 18 91/55 (67) 97 Room Air 03/02/23 11:20 36.8 78 18 102/61 (75) 99 Room Air 03/02/23 11:04 77 18 107/63 (78) 97 Room Air 03/02/23 10:47 77 18 107/60 (76) 97 Room Air 03/02/23 10:41 76 18 108/55 (72) 97 Room Air 03/02/23 10:34 66 18 103/57 (72) 97 Room Air 03/02/23 10:27 67 18 104/54 (71) 97 Room Air 03/02/23 10:22 65 18 79/41 (54) 96 Room Air 03/02/23 10:18 67 18 77/40 (52) 96 Room Air 03/02/23 10:12 64 18 101/51 (68) 96 Room Air 03/02/23 10:08 70 18 93/51 (65) 96 Room Air 03/02/23 10:01 64 18 97/54 (68) 97 Room Air 03/02/23 09:57 67 18 98/55 (69) 97 Room Air 03/02/23 09:53 63 18 89/53 (65) 98 Room Air 03/02/23 09:48 62 18 94/51 (65) 96 Room Air 03/02/23 09:41 74 18 91/55 (67) 96 Room Air 03/02/23 09:38 78 18 95/52 (66) 98 Room Air 03/02/23 09:31 66 18 103/58 (73) 96 Room Air 03/02/23 09:28 77 18 98/48 (65) 97 Room Air 03/02/23 09:25 69 18 109/54 (72) Room Air 03/02/23 09:22 85 18 93/55 (68) 97 Room Air 03/02/23 09:17 73 20 107/46 (66) 96 Room Air 03/02/23 09:13 77 20 107/68 (81) 98 Room Air 03/02/23 09:10 76 20 108/66 (80) 99 Room Air 03/02/23 09:06 75 20 109/67 (81) 99 Room Air 03/02/23 09:03 82 20 112/66 (81) 100 Room Air 03/02/23 09:00 81 20 111/74 (86) Room Air 03/02/23 08:57 83 20 110/65 (80) 98 Room Air 03/02/23 08:54 79 20 111/66 (81) 100 Room Air 03/02/23 08:51 87 20 114/68 (83) 100 Room Air 03/02/23 08:48 78 20 117/70 (86) 100 Room Air 03/02/23 08:16 36.9 03/02/23 03:38 114/57 (76) 03/02/23 02:52 36.7 03/01/23 23:38 36.9 79 18 124/69 (87) 100 Room Air 03/01/23 20:47 36.9 86 18 112/68 (83) 99 Room Air 03/01/23 19:47 36.9 86 18 99 Room Air Labs Laboratory Tests 03/01/23 20:15: White Blood Count 9.4, Red Blood Count 3.75L, Hemoglobin 11.1L, Hematocrit 34L, Mean Corpuscular Volume 90, Mean Corpuscular Hemoglobin 30, Mean Corpuscular Hemoglobin Concent 33, Red Cell Distribution Width 13.9, Platelet Count 194, Mean Platelet Volume 12.0, Immature Granulocyte % (Auto) 1, Neutrophils (%) (Auto) 71, Lymphocytes (%) (Auto) 18, Monocytes (%) (Auto) 8, Eosinophils (%) (Auto) 1, Basophils (%) (Auto) 0, Neutrophils # (Auto) 6.7, Lymphocytes # (Auto) 1.7, Monocytes # (Auto) 0.8, Eosinophils # (Auto) 0.1, Basophils # (Auto) 0.0, Immature Granulocyte # (Auto) 0.1, Syphilis Total Antibody Negative 03/01/23 21:40: Urine Color ORANGE, Urine Clarity CLEAR, Urine pH 5.5, Urine Specific [place] 1.025H, Urine Protein NEGATIVE, Urine Glucose (UA) NEGATIVE, Urine Ketones N EGATIVE, Urine Nitrite NEGATIVE, Urine Bilirubin NEGATIVE, Urine Urobilinogen 1.0, Urine Leukocyte Esterase NEGATIVE, Urine RBC (Auto) NEGATIVE, Urine RBC NONE, Urine WBC 0-2, Urine Squamous Epithelial Cells 10-25H, Urine Crystals PRESENTH, Urine Amorphous Sediment MOD RC URATESH, Urine Bacteria FEWH, Urine Casts NONE, Urine Mucus LARGEH, Urine Culture Indicated NO MICK VANG MD 03/02/23 1910: Supervisory-Addendum Brief Supervisory Addendum I was present for the entire procedure performed by the resident and agree with the documentation. LISANDRA ROMERO MD,RESIDENT Mar 02, 2023 18:19 MICK VANG MD Mar 02, 2023 19:10
[2023-03-02 18:25] LABS: ABG BASE EXCESS 13.9 MMOL/L (-2.5-2.5); ABG OXYGEN SATURATION 98 % (94-100); ABG PCO2 71 MMHG (35-45); ABG PO2 139 MMHG (79-93); CORD ARTERIAL BLOOD PH 7.37 (7.35-7.45)
[2023-03-02] MEDS ORDERED: BENZOCAINE/MENTHOL (DERMOPLAST) 56 ML CAN TP PRN (18:30)
[2023-03-02] MEDS ORDERED: Tetanus/Diphtheria/Pertussis (Acell) ADULT Vaccine 0.5 ML IM ONE (18:30)
[2023-03-02] MEDS ORDERED: WITCH HAZEL(TUCKS) 40 EA JAR TOP PRN (18:30)
[2023-03-02] MEDS ORDERED: OXYTOCIN INJECTION 10 UNIT/ML VIAL INJ ONE (19:56)
[2023-03-02] MEDS: IBUPROFEN 600 MG TABLET PO SCH (20:20)
[2023-03-02] MEDS: DOCUSATE SODIUM 100 MG CAPSULE PO SCH (20:20)
[2023-03-02] MEDS: ACETAMINOPHEN 500 MG TABLET PO SCH (20:20)
[2023-03-02] MEDS ORDERED: CATHETER FLUSH 10 ML SYR IV SCH (22:00)
[2023-03-03 00:32] VITALS: BP 85/50
[2023-03-03] MEDS: ACETAMINOPHEN 500 MG TABLET PO SCH ×4 (05:30→18:37)
[2023-03-03] MEDS: IBUPROFEN 600 MG TABLET PO SCH ×4 (05:30→18:36)
[2023-03-03 05:32] VITALS: BP 100/72
[2023-03-03 06:07] LABS: BASOPHILS # (AUTO) 0.1 10^3/uL (0.0-0.1); BASOPHILS % (AUTO) 0 % (0-10); EOSINOPHILS # (AUTO) 0.1 10^3/uL (0.0-0.3); EOSINOPHILS % (AUTO) 1 % (0-10); HEMATOCRIT 36 % (35-52); HEMOGLOBIN 11.7 g/dL (11.5-16.0); LYMPHOCYTES # (AUTO) 2.2 10^3/uL (1.0-4.0); LYMPHOCYTES % (AUTO) 12 % (12-44); MEAN CORPUSCULAR HEMOGLOBIN 29 pg (25-34); MEAN CORPUSCULAR HGB CONC 33 g/dL (32-36); MEAN CORPUSCULAR VOLUME 90 fL (80-99); MONOCYTES # (AUTO) 1.7 10^3/uL (0.0-1.0); MONOCYTES % (AUTO) 9 % (0-12); NEUTROPHILS # (AUTO) 14.5 10^3/uL (1.8-7.8); NEUTROPHILS % (AUTO) 78 % (42-75); PLATELET COUNT 166 10^3/uL (130-400); WHITE BLOOD COUNT 18.7 10^3/uL (4.3-11.0)
--- NOTE | 2023-03-03 07:34 | Anesthesia-Regional Post-Op ---
Regional Patient Condition Mental Status: Alert, Oriented x3 Circulation: Same as Pre-Op Headache: Absent Sensation: Full Recovery Motor Block: Absent Post Op Complications Complications None Follow Up Care/Instructions Patient Instructions None needed. Anesthesia/Patient Condition Patient is doing well, no complaints, stable vital signs, no apparent adverse anesthesia problems. No complications reported per nursing. D/C home per [facility] [place] Criteria: Yes HUNTER STOKES CRNA Mar 03, 2023 07:34
[2023-03-03] MEDS: DOCUSATE SODIUM 100 MG CAPSULE PO SCH ×2 (09:27→20:20)
[2023-03-03 09:28] VITALS: BP 124/53
[2023-03-03] MEDS ORDERED: OXYTOCIN INJECTION 10 UNIT/ML VIAL IM ONE (11:15)
[2023-03-03 11:48] VITALS: BP 108/63
--- NOTE | 2023-03-03 12:10 | Postpartum Progress Note ---
LISANDRA ROMERO MD,RESIDENT 03/03/23 1210: Note Note Day # 1 Subjective: Patient is without complaints. Ambulating, voiding. Tolerating a regular diet without nausea or vomiting. Normal lochia. Pain is well controlled with oral brittani n medications. Breast feeding well. Physical Exam: General - Alert and oriented, no apparent distress Abdomen - Soft, appropriately tender to palpation, non-distended, fundus firm at umbilicus Extremities - no edema, negative Cherie's bilaterally Assessment: Post- day # 1, status post spontaneous vaginal delivery. Recovering well, hemodynamically stable Plan: Routine care. Encourage breast feeding. Encourage ambulation. Ferrous sulfate supplementation. Plan for discharge PPD2 Vitals - Labs Vital Signs - I&O Vital Signs Date Time Temp Pulse Resp B/P (MAP) Pulse Ox O2 Delivery O2 Flow Rate FiO2 03/03/23 11:48 36.7 71 18 108/63 (78) Room Air 03/03/23 09:28 36.5 82 20 124/53 (76) 100 Room Air 03/03/23 05:32 36.8 75 18 100/72 (81) 100 Room Air 03/03/23 00:32 37.3 85 18 85/50 (62) 97 Room Air 03/02/23 20:20 36.6 88 18 99/66 (77) 100 Room Air 03/02/23 19:50 36.5 93 18 102/71 (81) 100 Room Air 03/02/23 19:03 92 18 105/72 (83) Room Air 03/02/23 18:48 36.9 74 18 106/70 (82) Room Air 03/02/23 18:33 37.1 82 18 102/59 (73) Room Air 03/02/23 18:18 92 18 117/73 (88) Room Air 03/02/23 18:10 37.3 03/02/23 18:03 88 18 110/66 (81) Room Air 03/02/23 16:33 97 18 106/57 (73) Room Air 03/02/23 16:18 75 18 107/64 (78) Room Air 03/02/23 16:11 36.9 03/02/23 16:05 83 18 116/56 (76) Room Air 03/02/23 15:50 82 18 105/70 (82) Room Air 03/02/23 15:35 81 18 106/60 (75) 100 Room Air 03/02/23 15:20 75 18 107/59 (75) 100 Room Air 03/02/23 15:06 80 18 103/62 (76) 99 Room Air 03/02/23 14:49 71 18 105/66 (79) Room Air 03/02/23 14:34 92 18 104/62 (76) 100 Room Air 03/02/23 14:20 78 18 106/53 (70) 100 Room Air 03/02/23 14:04 83 18 97/54 (68) 100 Room Air 03/02/23 13:50 36.7 73 18 108/50 (69) 100 Room Air 03/02/23 13:34 76 18 100/59 (73) 98 Room Air 03/02/23 13:20 71 18 97/56 (70) 98 Room Air 03/02/23 13:14 74 18 91/54 (66) 96 Room Air 03/02/23 13:04 72 18 88/54 (65) 96 Room Air 03/02/23 12:51 72 18 89/50 (63) 98 Room Air 03/02/23 12:35 78 18 110/62 (78) 99 Room Air 03/02/23 12:22 36.7 03/02/23 12:20 76 18 107/62 (77) 98 Room Air I & O 03/03/23 07:00 Intake Total 1100 ml Balance 1100 ml Labs Laboratory Tests 03/02/23 17:49: Arterial Blood Partial Pressure CO2 71*H, Arterial Blood Partial Pressure O2 139H, Arterial Blood HCO3 40H, Arterial Blood Oxygen Saturation 98, Arterial Blood Base Excess 13.9H, Cord Arterial Blood pH 7.37, Blood Gas Inspired Oxygen N/A 03/03/23 05:55: White Blood Count 18.7H, Red Blood Count 4.01, Hemoglobin 11.7, Hematocrit 36, Mean Corpuscular Volume 90, Mean Corpuscular Hemoglobin 29, Mean Corpuscular Hemoglobin Concent 33, Red Cell Distribution Width 13.8, Platelet Count 166, Mean Platelet Volume 12.0, Immature Granulocyte % (Auto) 1, Neutrophils (%) (Auto) 78H, Lymphocytes (%) (Auto) 12, Monocytes (%) (Auto) 9, Eosinophils (%) (Auto) 1, Basophils (%) (Auto) 0, Neutrophils # (Auto) 14.5H, Lymphocytes # (Auto) 2.2, Monocytes # (Auto) 1.7H, Eosinophils # (Auto) 0.1, Basophils # (Auto) 0.1, Immature Granulocyte # (Auto) 0.1 FIDELIA ROMO DO 03/03/23 1239: Supervisory-Addendum Brief Supervisory Addendum I personally have seen and evaluated the patient and performed the physical exam. I agree with the Resident's documented assessment and plan. LISANDRA ROMERO MD,RESIDENT Mar 03, 2023 12:10 FIDELIA ROMO DO Mar 03, 2023 12:39
[2023-03-03] MEDS ORDERED: DIBUCAINE 1% OINTMENT 28 GM TUBE TOP PRN (12:30)
[2023-03-03 16:30] VITALS: BP 110/68
[2023-03-04] MEDS: IBUPROFEN 600 MG TABLET PO SCH ×3 (00:03→12:06)
[2023-03-04] MEDS: ACETAMINOPHEN 500 MG TABLET PO SCH ×3 (00:03→12:00)
[2023-03-04 00:04] VITALS: BP 121/73
[2023-03-04 06:09] VITALS: BP 98/57
--- NOTE | 2023-03-04 09:03 | Discharge Summary ---
LISANDRA BETEHA MD,RESIDENT 03/04/23 0903: Discharge Inst-[facility] Reconcile Patient Problems Problems Reviewed?: Yes Depart Medications Final Diagnosis Spontaneous vaginal delivery Follow Up/Instructions Patient Instructions: Post- follow-up with Dr. Bethea in 6 weeks. Activity Activity: Activity as Tolerated Driving Instructions: You May Drive Diet Discharge Diet: No Restrictions Return to The Hospital For: Fever >100.6F, persistent vaginal bleeding, inability to urinate, acute onset shortness of breath, chest pain Symptoms to Report to : Extremity Discoloration, Bleeding Excessive, Eyesight Changes, Fever Over 101 Degrees F, Urination Difficulty, Cramps in Feet or Legs, Vaginal Discharge Foul, Shortness of Breath For Any Problems or Questions: Contact Your Physician, Go to Emergency Room Physical Exam Physical Exam Vital Signs Vital Signs Date Time Temp Pulse Resp B/P (MAP) Pulse Ox O2 Delivery O2 Flow Rate FiO2 03/04/23 06:09 36.0 100 16 98/57 (71) 97 Room Air 03/04/23 00:04 36.3 73 16 121/73 (89) 98 Room Air 03/03/23 16:30 36.5 75 110/68 (82) Room Air 03/03/23 11:48 36.7 71 18 108/63 (78) Room Air 03/03/23 09:28 36.5 82 20 124/53 (76) 100 Room Air Capillary Refill : Less Than 3 Seconds General Appearance: No Apparent Distress Respiratory: Chest Non Tender, Lungs Clear, Normal Breath Sounds Cardiovascular: Regular Rate, Rhythm Abdominal: normal bowel sounds, non tender, soft Uterus: WNL Extremity: Normal Range of Motion, No Calf Tenderness, No Pedal Edema FIDELIA ROMO DO 03/04/23 1127: Supervisory-Addendum Brief Supervisory Addendum I personally have seen and evaluated the patient and performed the physical exam. I agree with the documented assessment and plan. LISANDRA BETHEA MD,RESIDENT Mar 04, 2023 09:03 FIDELIA ROMO DO Mar 04, 2023 11:27
[2023-03-04 09:21] VITALS: BP 98/59
[2023-03-04] MEDS: DOCUSATE SODIUM 100 MG CAPSULE PO SCH (09:23)
[2023-03-04] MEDS ORDERED: IBUP-844 PO (11:24)
== END 2023-03-04 12:45 | disposition home or self-care (01) | DRG 807 ==
LOC: LDRP 19:41
PROVIDERS: ADMIT Family Medicine; ATTEND Family Medicine
PROC: 10E0XZZ Delivery of Products of Conception, External Approach (ICD-10-PCS; principal; 2023-03-02)
PROC: 10907ZC Drainage of Amniotic Fluid, Therapeutic from Products of Conception, Via Natural or Artificial Opening (ICD-10-PCS; 2023-03-02)
PROC: 3E033VJ Introduction of Other Hormone into Peripheral Vein, Percutaneous Approach (ICD-10-PCS; 2023-03-02)
DX: O71.82 Other specified trauma to perineum and vulva (principal); Z37.0 Single live birth; Z3A.39 39 weeks gestation of pregnancy; O69.81X0 Labor and delivery complicated by cord around neck, without compression, not applicable or unspecified
CPT/HCPCS: 36415; 81000; 82805; 85025; 86780; 86850; 86900; 86901